=== PATIENT | female | born 1980 | race Caucasian/White ===

== ENCOUNTER → 2017-10-09 10:46 | Outpatient (CLI) | payer BC, SELFPAY ==
--- NOTE | 2017-10-09 10:47 | XR_ITS ---
XR tibia fibula RT 2V HISTORY: Follow-up ITS.REASON: fracture ORDERING PHYSICIAN: Gillian Santillan DPM PATIENT AGE: 37 years COMPARISON: 10/01/2017 FINDINGS: The tibia is intact. Again noted is the essentially nondisplaced spiral oblique fracture distal fibula just above the lateral malleolus. This is stable and unchanged in appearance from previous exam. There is less soft tissue swelling about the ankle on today's study. IMPRESSION: Stable spiral oblique fracture distal fibula
--- NOTE | 2017-10-09 10:47 | XR_ITS ---
XR ankle wt bearing RT min 3V HISTORY: Follow-up fracture ITS.REASON: fracture ORDERING PHYSICIAN: Gillian Santillan DPM PATIENT AGE: 37 years Comparison: 10/01/2017 FINDINGS: The spiral oblique fracture of the distal fibula is again noted. There is no significant callus formation or periosteal reaction noted. The medial malleolus is intact and the ankle mortise appears grossly normal. There is less soft tissue swelling than on the previous study. IMPRESSION: Able nondisplaced spiral oblique fracture distal fibula
--- NOTE | 2017-10-09 10:47 | XR_ITS ---
XR ankle wt bearing LT min 3V HISTORY: Comparison views ITS.REASON: Right ankle fracture ORDERING PHYSICIAN: Gillian Santillan DPM PATIENT AGE: 37 years Comparison: None FINDINGS: No fracture or dislocation. No lytic or blastic change. There is normal mineralization.. The joint spaces are well-preserved. No significant degenerative/arthritic changes. No erosive changes evident. IMPRESSION: Negative ankle, no acute finding
--- NOTE | 2017-10-09 13:47 | XR_ITS ---
XR chest 2V HISTORY: ITS.REASON: COUGH,SHORTNESS OF BREATH ORDERING PHYSICIAN: Gillian Santillan DPM PATIENT AGE: 37 years COMPARISON: None available FINDINGS: The cardiomediastinal silhouette and pulmonary vascularity are within normal limits. The lungs are clear without infiltrates, suspicious nodules, or pleural effusions. No acute bony abnormalities. IMPRESSION: Negative chest, no acute finding
[2017-10-09 14:31] LABS: Anion Gap 15.4 mEq/L (5-15); Blood Urea Nitrogen 16 mg/dL (7-18); Calcium 9.1 mg/dL (8.5-10.1); Carbon Dioxide 25 mmol/L (21.0-32.0); Chloride 107 mmol/L (98-107); Creatinine,Serum 0.73 mg/dL (0.55-1.02); Estimated Glomerular Filt Rate 90 ml/min (>60); GFR (African American) 109 ML/MIN (>60); Glucose 91 mg/dL (74-106); Potassium 4.4 mmoL/L (3.5-5.1); Sodium 143 mmol/L (136-145)
[2017-10-09 14:54] LABS: Basophils % 0.3 % (0.1-2.0); Eosinophils # 0.1 K/mm3 (0.0-0.4); Eosinophils % 0.9 % (0.1-12.0); Hematocrit 43.4 % (37.0-47.0); Lymphocytes % 34.2 K/mm3 (10-50); Mean Corpuscular HGB Conc 32.3 g/dL (31.8-35.4); Mean Corpuscular Hemoglobin 29.1 pg (27.0-31.2); Mean Platelet Volume 9.4 fl (7.4-10.4); Monocytes # 0.4 K/mm3 (0.1-1.0); Monocytes % 4.9 % (1.7-9.3); Neutrophils # 5.3 K/mm3 (1.8-7.8); Neutrophils % 59.8 % (37.0-80.0); Platelet Count 216 K/mm3 (142-424); Red Blood Count 4.82 M/mm3 (4.20-5.40); Red Cell Distribution Width 12.7 % (11.5-17.5); White Blood Count 8.8 K/mm3 (4.8-10.8)
== END ==
PROVIDERS: Visit Provider Podiatrist
DX: Z01.818 Encounter for other preprocedural examination (principal); S82.831A Other fracture of upper and lower end of right fibula, initial encounter for closed fracture
CPT/HCPCS: 36415; 71046; 73590; 73610; 80048; 85025; 93005

== ENCOUNTER → 2017-11-13 09:14 | Outpatient (CLI) | payer BC, SELFPAY ==
--- NOTE | 2017-11-13 09:14 | XR_ITS ---
XR ankle wt bearing RT min 3V Ordering Physician: Gillian Santillan DPM Patient Age: 37 years: Female HISTORY: ITS.REASON: POST-OP VIEWS ORIF fracture TECHNIQUE: 3 views right ankle COMPARISON :October 09, 2017 FINDINGS . There is been interval ORIF of distal fibular fracture. Metallic plate is been applied laterally to the distal fibular fracture by 6 screws. This providing fixation to the previous noted spiral fracture of lateral aspect of the distal fibula. Anatomical position of fracture elements. Good position. The ankle mortise intact. Lateral malleolus posterior malleolus intact. Dome of talus intact. IMPRESSION: ORIF distal fibular fracture Good position of fracture and fixation elements
== END ==
PROVIDERS: Visit Provider Podiatrist
DX: Z98.890 Other specified postprocedural states (principal)
CPT/HCPCS: 73610

== ENCOUNTER → 2017-11-30 07:43 | Outpatient (CLI) | payer BC, SELFPAY ==
--- NOTE | 2017-11-30 07:46 | XR_ITS ---
XR ankle wt bearing RT min 3V HISTORY: Follow-up surgery ITS.REASON: post-op views ORDERING PHYSICIAN: Gillian Santillan DPM PATIENT AGE: 37 years Comparison: 11/13/2017 FINDINGS: Lateral bone plate noted at the distal fibula stabilizing the nondisplaced distal fibular fracture. Fracture line is barely visible. IMPRESSION: No change status post ORIF distal fibular fracture with good alignment
== END ==
PROVIDERS: PCP Family Medicine; Visit Provider Podiatrist
DX: Z98.890 Other specified postprocedural states (principal)
CPT/HCPCS: 73610

== ENCOUNTER 2017-12-15 08:04 | Outpatient (RCR) | payer BC, SELFPAY ==
--- NOTE | 2017-12-15 08:48 | HMH.PTOPEV ---
PT Outpatient Evaluation Rehab PT Outpatient Evaluation Start: 12/15/17 08:36 Freq: Status: Active Protocol: Document 12/15/17 08:36 AXELGRAY (Rec: 12/15/17 08:47 AXELJEREMIEKATHERINE [id number]) Electronically Signed By Dustin Rene, PT 12/15/17 08:36 Outpatient Therapy Subjective History Subjective History Patient is a 37 year old female presenting to outpatient PT with reports of R ankle soreness/stiffness S/P R ankle ORIF for distal fibula fracture on 10/13/17. Initial injury occurred at home when patient slipped on some wet grass on 10/01/17. Patient has trasitioned from CAM walker to ankle brace. Pt ambulated into clinic with no brace wearing sandals today. No observable gait deviations . Chief Complaint Stiff Symptom Type Other Symptoms Relieved By Rest/Positioning Symptoms Aggravated By Physical Activity Prior Functional Limitations None Current Functional Limitations Standing Walking Stairs Symptom Description Intermittent Level of pain today (0-10) 0 Pain scale - at its best (0-10) 0 Pain scale - at its worst (0-10) 2 Ankle/Foot Eval Gait Observation General Gait Pattern Observation No Deviations/Normal Assistive Device Ambulation Assistive Device None Palpation Tenderness right ATF TTP positive ROM Ankle/Foot Dorsiflexion w/Knee Extended 1 Active Range Motion (degrees) Ankle/Foot Dorsiflexion w/Knee Extended 7 Passive Range (degrees) Ankle/Foot Plantar Flexion Active Range WNL of Motion (degrees) Ankle/Foot Eversion Active Range of WNL Motion (degrees) Ankle/Foot Inversion Active Range of WNL Motion (degrees) Ankle/Foot ROM Limitations Soft Tissue Tightness Accessory Movements Ankle Accessory Movements that Elicit Fibular Dorsal [place] Symptoms Fibular Ventral [place] MMT right Ankle Dorsiflexion Strength Grade 5 Normal Ankle Plantarflexion Strength Grade 5 Normal Foot Eversion Strength Grade 4 Good Foot Inversion Strength Grade 5 Normal Special Tests Ankle Anterior Drawer Test Negative Right Ankle Eversion Test Negative Right Talar Tilt Test Negative Right Ankle Posterior Drawer Test Negative Right Outpatient Therapy Assessment Impairments Problems/Impa
== END 2017-12-15 08:05 | disposition home or self-care (01) ==
LOC: PT 08:04
PROVIDERS: Family Provider Family Medicine; PCP Family Medicine; Visit Provider Podiatrist
DX: S82.831A Other fracture of upper and lower end of right fibula, initial encounter for closed fracture (principal)
CPT/HCPCS: 97163

== ENCOUNTER → 2018-07-31 14:27 | Outpatient (CLI) | payer BC, SELFPAY ==
--- NOTE | 2018-07-31 14:28 | US_ITS ---
US transvaginal HISTORY: Left-sided pelvic pain ITS.REASON: US T/v- LLQP ORDERING PHYSICIAN: Rah Thurman MD PATIENT AGE: 38 years Comparison: None FINDINGS: There has been a prior hysterectomy. The vaginal cuff has an unremarkable appearance. The left ovary measures 3.8 x 2.5 cm. Blood flow is present. The right ovary is 2.9 x 1.8 cm with blood flow noted. There are small follicles. No cul-de-sac fluid or adnexal mass. IMPRESSION: Prior hysterectomy, no acute finding
== END ==
PROVIDERS: PCP Physician Assistant; Visit Provider Nurse Practitioner Obstetrics & Gynecology
DX: R10.32 Left lower quadrant pain (principal)
CPT/HCPCS: 76830

== ENCOUNTER 2020-04-10 10:15 | Emergency (ER) | payer BC, SELFPAY ==
[2020-04-10 10:23] VITALS: BP 136/98; PULSE 72; RESP 18; TEMP 36.8; O2SAT 98; BMI 32.0
[2020-04-10 10:35] VITALS: BP 158/98; PULSE 76; RESP 14; TEMP 37.4; O2SAT 98; BMI 32.0
--- NOTE | 2020-04-10 10:38 | XR_ITS ---
PROCEDURE: XR WRIST LT MIN 3V CLINICAL INDICATION: injury Pain COMPARISON: No exams were available for comparison FINDINGS: No fracture or dislocation. No lytic or blastic change. There is normal mineralization. The joint spaces are well-preserved. No significant degenerative/arthritic changes. No erosive changes evident. Other findings:None. IMPRESSION: No acute findings. Dictated by: Isidro Martinez MD 04/10/2020 11:32 Isidro Martinez MD in [place] 04/10/2020 11:32
--- NOTE | 2020-04-10 11:01 | HMH.EDUTC ---
[facility] [place] Clinical Impression: Left wrist pain Disposition: Home, Self-Care Condition on Discharge: Good Instructions: DI for Wrist Pain Prescriptions: Naproxen [Naproxen 500mg tab] 500 mg PO BID 10 Days #20 tab Transmission Status: Pending to [id number] Referrals: Monica Gold [Primary Care Provider] - Miguel Delacruz MD [Staff Physician] - Time of Disposition: 11:13 Medical Decision Making - Darwin Inquiry Pt receiving controlled substance: No Vital Signs: 04/10/20 10:23 04/10/20 10:35 Temperature 98.3 F 99.4 F Temperature Source Oral Oral Pulse Rate [Left Radial] 72 76 Respiratory Rate 18 14 Blood Pressure [Right Arm] 136/98 H 158/98 H Blood Pressure Mean [Right Arm] 110 118 Blood Pressure Source [Right Arm] Automatic Cuff Automatic Cuff Blood Pressure Position [Right Arm] Sitting Sitting 02 Sat by Pulse Oximetry 98 98 Oxygen Delivery Method Room Air Room Air Orders (Tests/Meds): ORDERS Category Date Time Status XR wrist LT min 3V Stat Exams 04/10/20 10:38 Taken - Radiology Data #1 Image(s): Wrist Image Reviewed: Yes I reviewed the patient's radiology image Preliminary Findings: Normal/NAD [facility] [place] - General Stated complaint: Lt wrist pain Time Seen by Provider: 04/10/20 11:01 Mode of Arrival: Ambulatory Source of Information: Patient Limitations: No Limitations Description of Symptoms (Recalled from Triage Doc. by RN): c/o left wrist pain that started in January. No known injury, states that back in Jan she noticed a knot and swelling around wrist but that has gone away but the pain continues HEENT Symptoms (Recalled from RN notes): No Resp Symptoms (Recalled from RN notes): No Skin Symptoms (Recalled from RN notes): No MS Symptoms (Recalled from RN notes): Yes Functional Status (Recalled from RN notes): WNL - History of Present Illness Provider Complaint: Patient has been having left wrist pain for 2 months. STarted after hunting, but didn't actually do anything that she can recall to injure it. It sometimes swells, it always sore and inhibits some of her activities. SHe is right handed but uses left hand at work. Wearing a brace seemed to make it worse. Motrin and Tylenol don't make much difference. Onset (ago): month(s) (2) Location: left Radiation: non-radiation Relieving factors: none Exacerbating factors: none Associated symptoms: denies other symptoms Treatments prior to arrival: none - Related Data Home Medications Medication Instructions Recorded Confirmed Fluoxetine HCl [Prozac 20mg 20 mg PO DAILY 10/01/17 08/08/18 Capsule] Previous Rx's Medication Instructions Recorded Naproxen [Naproxen 500mg tab] 500 mg PO BID 10 Days #20 tab 04/10/20 Allergies Allergy/AdvReac Type Severity Reaction Status Date / Time No Known Allergies Allergy Verified 08/08/18 16:37 - Worker's Comp Is this a Worker's Comp case?: No [facility] History - Hepatitis A Screen Drug use history?: No High risk sexual behaviors?: No History of sexually transmitted infection?: No Currently employed?: No Childcare worker?: No Do you have indoor plumbing?: Yes Do you have electricity?: Yes Attestation statement:: This patient has been screened for Hepatitis A risk factors. I have reviewed the patient's past medical history: Yes Medical History: Reports:: Depression, Hyperlipidemia Denies:: Cancer, Diabetes Mellitus Type 1, Diabetes Mellitus Type 2, Internal Pacemaker, MRSA, Seizures Other Medical History: Denies: Blood Transfusion Reaction Other Surgeries: Yes: Appendectomy, , Hysterectomy-Total, Other (Right ankle ORIF). No: Pacemaker Amputation: No Fractures: Yes Comment: Broken Ankle, Sx 09/2017 - Social History Smoking Status: Never smoker Alcohol Intake: never Alcohol Intake Frequency:: other Substance Use Type: denies use Occupational Status: other Housing: house Household Members: spouse - Psychiatric
[2020-04-10 11:14] VITALS: BP 158/98; PULSE 76; RESP 14; TEMP 37.4; O2SAT 98
== END 2020-04-10 11:20 | disposition home or self-care (01) ==
LOC: ER 10:23 → UTC 10:24
PROVIDERS: Emergency Provider Physician Assistant; PCP Physician Assistant
DX: M25.532 Pain in left wrist (principal); E78.5 Hyperlipidemia, unspecified; F33.1 Major depressive disorder, recurrent, moderate; Z79.899 Other long term (current) drug therapy
CPT/HCPCS: 73110; 99202; G0463

== ENCOUNTER 2021-07-27 18:41 | Emergency (ER) | payer BC, SELFPAY ==
--- NOTE | 2021-07-27 19:35 | HMH.EDUTC ---
[facility] [place] Clinical Impression: Skin abscess Qualifiers: Site of cutaneous abscess: trunk Site of cutaneous abscess of trunk: back Qualified Code(s): L02.212 - Cutaneous abscess of back [any part, except buttock] Disposition: Home, Self-Care Condition on Discharge: Good Additional Instructions: Keep the affected area clean and dry. Follow up with your regular doctor. Take the antibiotics as directed and apply the topical antibiotics as directed. Apply warm wet compresses to the affected area three or four times per day. GO TO THE ER FOR ANY WORSENING SYMPTOMS Prescriptions: Sulfamethoxazole/Trimethoprim [Bactrim DS tablet] 1 each PO BID 10 Days #20 tab Transmission Status: Received by [id number] Mupirocin [Bactroban 2% Ointment 22gm tube] 1 applicatio TP TID 7 Days #1 gm Transmission Status: Received by [id number] cephALEXin [cephALEXin 500mg capsule] 500 mg PO Q6H 10 Days #40 cap Transmission Status: [facility] Referrals: Margaret Chambers APRN [Primary Care Provider] - Time of Disposition: 20:35 Medical Decision Making - Medical Records Medical records reviewed: No: I reviewed the patient's medical records. - Darwin Inquiry Pt receiving controlled substance: No Vital Signs: 07/27/21 19:41 07/27/21 20:37 Temperature 98.8 F 98.8 F Temperature Source Oral Pulse Rate 67 Pulse Rate [Left] 67 Respiratory Rate 18 18 Blood Pressure 130/80 Blood Pressure [Right Arm] 150/89 H Blood Pressure Mean [Right Arm] 109 02 Sat by Pulse Oximetry 97 Orders (Tests/Meds): ED MEDICATIONS Discontinued Medications Generic Name Dose Route Start Last Admin Trade Name Freq PRN Reason Stop Dose Admin Ceftriaxone Sodium 1 gm 07/27/21 20:07 07/27/21 20:18 Ceftriaxone 1gm Vial IM 07/27/21 20:08 1 gm ONCE ONE Administration Lidocaine HCl 0 ml 07/27/21 20:07 07/27/21 20:17 Lidocaine 1% 5ml Pf Vial IM 07/27/21 20:08 2 ml ONCE ONE Administration ORDERS Category Date Time Status Wound Culture and Gram Stain Stat Micro 07/27/21 20:05 Results [facility] [place] HPI - General Stated complaint: possible staff infection on back Time Seen by Provider: 07/27/21 19:35 - History of Present Illness Provider Complaint: She has had a boil on her back for the past 2 days. She states that it is getting more sore. She denies any fever or chills. - Related Data Home Medications Medication Instructions Recorded Confirmed Fluoxetine HCl [Prozac 20mg 40 mg PO DAILY 10/01/17 04/10/20 Capsule] Previous Rx's Medication Instructions Recorded Naproxen [Naproxen 500mg tab] 500 mg PO BID 10 Days #20 tab 04/10/20 Mupirocin [Bactroban 2% Ointment 1 applicatio TP TID 7 Days #1 gm 07/27/21 22gm tube] Sulfamethoxazole/Trimethoprim 1 each PO BID 10 Days #20 tab 07/27/21 [Bactrim DS tablet] cephALEXin [cephALEXin 500mg 500 mg PO Q6H 10 Days #40 cap 07/27/21 capsule] Allergies Allergy/AdvReac Type Severity Reaction Status Date / Time No Known Allergies Allergy Verified 07/27/21 19:43 [facility] History - Hepatitis A Screen Attestation statement:: This patient has been screened for Hepatitis A risk factors. I have reviewed the patient's past medical history: Yes Medical History: Reports:: Depression, Hyperlipidemia Denies:: Cancer, Diabetes Mellitus Type 1, Diabetes Mellitus Type 2, Internal Pacemaker, MRSA, Seizures Other Medical History: Denies: Blood Transfusion Reaction Other Surgeries: Yes: Appendectomy, , Hysterectomy-Total, Other (Right ankle ORIF). No: Pacemaker Amputation: No Fractures: Yes Comment: Broken Ankle, Sx 09/2017 - Social History Smoking Status: Never smoker Alcohol Intake: never Alcohol Intake Frequency:: other Substance Use Type: denies use Occupational Status: other Housing: house Household Members: spouse - Psychiatric History Pschychiatric History:: Reports:: Erin
[2021-07-27 19:41] VITALS: BP 150/89; PULSE 67; RESP 18; TEMP 37.1; O2SAT 97; BMI 33.8
[2021-07-27 20:37] VITALS: BP 130/80; PULSE 67; RESP 18; TEMP 37.1
== END 2021-07-27 20:43 | disposition home or self-care (01) ==
PROVIDERS: Emergency Provider Nurse Practitioner Family; PCP Nurse Practitioner Family
DX: L02.212 Cutaneous abscess of back [any part, except buttock and flank] (principal); E78.5 Hyperlipidemia, unspecified; F32.A Depression, unspecified; Z82.49 Family history of ischemic heart disease and other diseases of the circulatory system
CPT/HCPCS: 87070; 87077; 87186; 87205; 99213; G0463; J0696

== ENCOUNTER 2022-02-05 08:14 | Emergency (ER) | payer BC, SELFPAY ==
[2022-02-05 08:30] VITALS: BP 131/79; PULSE 83; RESP 18; TEMP 36.8; O2SAT 98; BMI 34.5
--- NOTE | 2022-02-05 08:44 | EXP.UTC ---
Discharge Plan Disposition Patient Disposition: Home, Self-Care Condition: Good Prescriptions Prescriptions: New oseltamivir [Tamiflu] 75 mg capsule 75 mg PO BID 5 Days Qty: 10 0RF benzonatate 100 mg capsule 100 mg PO TID PRN (Reason: cough) Qty: 30 0RF No Action fluoxetine 20 MG capsule 40 mg PO DAILY naproxen 500 MG tablet 500 mg PO BID 10 Days Qty: 20 0RF sulfamethoxazole-trimethoprim 1 EACH tablet 1 each PO BID 10 Days Qty: 20 0RF mupirocin 22 GM ointment 1 applicatio TP TID 7 Days Qty: 1 0RF cephalexin 500 MG capsule 500 mg PO Q6H 10 Days Qty: 40 0RF Referrals Follow up/Referrals: Margaret Chambers APRN [Primary Care Provider] - See instructions Activity Restrictions/Add. Instructions Additional Instructions/Restrictions: Start Tamiflu today if you are going to take it. Discussed risk and possible benefits. Lots of rest Increase Fluids water, Gatorade, powerade, pedialyte,if /toddler/child Alternate Tylenol and / or ibuprofen as discussed for fever, aches, chills Follow up IMMEDIATELY with your family doctor for new or worsening Symptoms OR no noticeable improvement over the next 48-72 hours, 911 for difficulty or breathing You or your child area contagious until no fever, aches, chills for 24 hours with medication for symptoms Help Prevent the spread of influenza: ?Wash your hands often. Use soap and water. Wash your hands after you use the bathroom, change a child's diapers, or sneeze. Wash your hands before you prepare or eat food. Use gel hand cleanser that has 60% alcohol, when soap and water are not available. Do not touch your eyes, nose, or mouth unless you have washed your hands first. Cover your mouth when you sneeze or cough. Cough into a tissue or the bend of your arm. If you use a tissue, throw it away immediately and wash your hands. Clean shared items with a germ-killing equipment or machinery cleaner. Clean table surfaces, doorknobs, and light switches. Do not share towels, silverware, and dishes with people who are sick. Wash bed sheets, towels, silverware, and dishes with soap and water. Wear a mask over your mouth and nose if you are sick. The face mask may help protect others from becoming infected with the flu. Wear the mask when in common areas of your home or if you seek care with a healthcare provider. Stay away from others if you are sick. Stay at home until 24 hours after your fever and symptoms are gone. Clinical Impressions Clinical Impression: Influenza A Stand Alone Forms Stand Alone Forms: Work/School Release Instructions Patient Instructions: Influenza, DI for Influenza -- Adult Discharge ED Provider: Sandra Lara [facility] [place] HPI General Stated complaint: runny nose, fever, body aches Time Seen by Provider: 02/05/22 08:44 History of Present Illness Provider Complaint: Patient state that she has been having fever, chills, body aches and over all not feeling well States that she feels like she may have the flu Related Data Home Medications Medication Instructions Recorded Confirmed fluoxetine 20 mg capsule 40 mg PO DAILY Depression 10/01/17 04/10/20 Previous Rx's Medication Instructions Recorded naproxen 500 mg tablet 500 mg PO BID 10 days #20 tabs 04/10/20 cephalexin 500 mg capsule 500 mg PO Q6H 10 days #40 caps 07/27/21 mupirocin 2 % topical ointment 1 applicatio TP TID 7 days ##1 07/27/21 sulfamethoxazole 800 1 each PO BID 10 days #20 tabs 07/27/21 mg-trimethoprim 160 mg tablet benzonatate 100 mg capsule 100 mg PO TID PRN cough #30 caps 02/05/22 oseltamivir 75 mg capsule (Tamiflu) 75 mg PO BID 5 days #10 caps 02/05/22 Allergies Allergy/AdvReac Type Severity Reaction Status Date / Time No Known Allergies Allergy Verified 07/27/21 19:43 [facility] Medical History (Update
[2022-02-05 08:49] LABS: UTC Influenza A Antigen Positive (Negative); UTC Influenza B Antigen Negative (Negative)
[2022-02-05 08:58] VITALS: BP 131/79; PULSE 83; RESP 18; TEMP 36.8; O2SAT 98
== END 2022-02-05 09:05 | disposition home or self-care (01) ==
PROVIDERS: Emergency Provider Nurse Practitioner; PCP Nurse Practitioner Family
DX: J10.1 Influenza due to other identified influenza virus with other respiratory manifestations (principal)
CPT/HCPCS: 87804; 99212; G0463

== ENCOUNTER 2023-09-20 03:48 | Emergency (ER) | payer BC, SELFPAY ==
[2023-09-20 03:50] VITALS: BP 157/100; PULSE 71; RESP 16; TEMP 36.9; O2SAT 98; BMI 34.5
--- NOTE | 2023-09-20 04:00 | CT_ITS ---
PROCEDURE INFORMATION: Exam: CT Abdomen And Pelvis With Contrast Exam date and time: 09/20/2023 5:00 AM Age: 43 years old Clinical indication: Abdominal pain; Additional info: Rlq pain TECHNIQUE: Imaging protocol: Computed tomography of the abdomen and pelvis with contrast. Radiation optimization: All CT scans at this facility use at least one of these dose optimization techniques: automated exposure control; mA and/or kV adjustment per patient size (includes targeted exams where dose is matched to clinical indication); or iterative reconstruction. Contrast material: ISOVUE; Contrast volume: 75 ml; Contrast route: IV; COMPARISON: TRANVAG US transvaginal 07/31/2018 2:38 PM FINDINGS: Liver: Normal. No mass. Gallbladder and biliary ducts: Normal. No calcified stones. No ductal dilation. Pancreas: Normal. No ductal dilation. Spleen: Normal. No splenomegaly. Adrenal glands: Normal. No mass. Kidneys and ureters: Normal. No hydronephrosis. Stomach and bowel: Unremarkable. No obstruction. No mucosal thickening. Appendix: No evidence of appendicitis. Intraperitoneal space: Unremarkable. No free air. No significant fluid collection. Vasculature: Unremarkable. No abdominal aortic aneurysm. Lymph nodes: Unremarkable. No enlarged lymph nodes. Urinary bladder: Unremarkable as visualized. Reproductive: Small amount of free fluid is seen in the pelvis adjacent to a mildly prominent right adnexa. The patient is status post hysterectomy. The left adnexa is unremarkable.. Bones/joints: Unremarkable. No acute fracture. Soft tissues: Unremarkable. IMPRESSION: Small amount of free fluid adjacent to a mildly edematous appearing right adnexa, possible hemorrhagic follicle or other process. Prior hysterectomy.
[2023-09-20 04:08] LABS: Microscopic, Urine URINE MICROSCOPIC (MICROSCOPIC)
[2023-09-20] MEDS: ONDANSETRON 4MG/2ML VIAL 4 MG IV (04:10)
[2023-09-20] MEDS: KETOROLAC 30MG/ML VIAL 30 MG IV (04:10)
[2023-09-20 04:11] LABS: Appearance,Urine CLEAR (Clear); Bilirubin,Urine Negative (Negative); Blood, Urine Negative (Negative); Color,Urine YELLOW (Yellow); Glucose,Urine (UA) Negative (Negative); Ketones,Urine Negative (Negative); Leukocyte Esterase,Urine Negative (Negative); Nitrate,Urine Negative (Negative); Protein,Urine Negative (Negative); Urobilinogen,Urine 0.2 EU/dl (0.2)
[2023-09-20] MEDS: MORPHINE 4MG/ML SYRINGE 4 MG IV (04:11)
[2023-09-20] MEDS: ACETAMINOPHEN 500MG TAB 1000 MG PO (04:11)
[2023-09-20 04:28] LABS: Bacteria,Urine Trace /lpf; WBC,Urine Occasional #/hpf (0-3)
[2023-09-20 04:30] VITALS: BP 122/77; PULSE 61; O2SAT 94
[2023-09-20 04:44] LABS: Basophils # 0.1 K/mm3 (0-0.2); Basophils % 0.8 % (0.1-2.0); Eosinophils # 0.1 K/mm3 (0.0-0.4); Eosinophils % 1.1 % (0.1-12.0); Hematocrit 43.1 % (37.0-47.0); Hemoglobin 13.9 g/dL (12.2-16.2); Lymphocytes # 2.7 K/mm3 (0.7-4.5); Lymphocytes % 26.7 % (10-50); Mean Corpuscular HGB Conc 32.4 g/dL (31.8-35.4); Mean Corpuscular Hemoglobin 30.2 pg (27.0-31.2); Mean Corpuscular Volume 93.5 fl (81-99); Mean Platelet Volume 9.4 fl (7.4-10.4); Monocytes # 0.4 K/mm3 (0.1-1.0); Monocytes % 4.2 % (1.7-9.3); Neutrophils # 6.8 K/mm3 (1.8-7.8); Neutrophils % 67.2 % (37.0-80.0); Platelet Count 260 K/mm3 (142-424); Red Blood Count 4.61 M/mm3 (4.20-5.40); Red Cell Distribution Width 13.9 % (11.5-17.5); White Blood Count 10.2 K/mm3 (4.8-10.8)
[2023-09-20 04:47] LABS: Chloride 104 mmol/L (98-107); Sodium 137 mmol/L (136-145)
[2023-09-20 04:48] LABS: Potassium 4.2 mmoL/L (3.5-5.1)
[2023-09-20 04:50] LABS: Alanine Aminotransferase 19 U/L (12-78); Albumin/Globulin Ratio 1.3 (1.1-1.8); Alkaline Phosphatase 73 U/L (38-126); Anion Gap 10.2 mEq/L (5-15); Aspartate Amino Transferase 24 U/L (14-36); Bilirubin,Total 0.2 mg/dl (0.2-1.3); Blood Urea Nitrogen 18 mg/dl (7-17); Calcium 9.4 mg/dl (8.4-10.2); Carbon Dioxide 27 mmol/L (22.0-30.0); Creatinine Clearance Estimated 145 mL/min (50-200); Estimated Glomerular Filt Rate 91 ml/min (>60); GFR (African American) 111 ML/MIN (>60); Globulin 3.1 g/dL (1.3-3.2); Glucose 130 mg/dl (74-100); HCG Qualitative, Serum Negative (Negative); Total Protein,Serum 7.1 g/dl (6.3-8.2)
[2023-09-20] MEDS: IOPAMIDOL-370 (76%);100ML BOTTLE 75 ML IV (05:05)
[2023-09-20] MEDS: SODIUM CHLORIDE 0.9% 10ML SYR (RAD ONLY) 10 ML IV (05:06)
[2023-09-20 05:30] VITALS: BP 112/70; PULSE 55; O2SAT 92
[2023-09-20 05:54] VITALS: BP 112/70; PULSE 58; RESP 16; TEMP 36.8; O2SAT 93
--- NOTE | 2023-09-20 05:54 | HMH.EDGENADL ---
Discharge Plan Disposition Patient Disposition: Home, Self-Care Prescriptions Prescriptions: No Action fluoxetine 20 MG capsule 40 mg PO DAILY naproxen 500 MG tablet 500 mg PO BID 10 Days Qty: 20 0RF Referrals Follow up/Referrals: Margaret Chambers APRN [Primary Care Provider] - See instructions Activity Restrictions/Add. Instructions Additional Instructions/Restrictions: Please follow-up with your primary care provider. Please return to the emergency department if you develop any new or worsening symptoms or become concerned for your health. Clinical Impressions Clinical Impression: Rupture of ovarian cyst Instructions Patient Instructions: DI for Acute Abdominal Pain Discharge ED Provider: Arturo Slade General Adult HPI General Chief complaint: Abdominal Pain Stated complaint: Lower back pain,abdominal pain Time Seen by Provider: 09/20/23 03:55 Mode of Arrival: Ambulatory Source of Information: Patient Limitations: No Limitations Description of Symptoms (Recalled from ER Triage Doc. by RN): Pt presents to ED for R sided abd pain and back pain. Pt states this started approx 2 hours ago. Pt is A&O*4 at this time and spouse is bedside. History of Present Illness HPI narrative: 43-year-old female with history of hysterectomy, appendectomy presents with pelvic pain. She reports that started about 2 hours prior to arrival. Reports it started in her right-sided lower abdomen and then moved up into her right back. She denies any history of kidney stones, denies any urinary urgency or frequency, denies any recent fever or illness. Related Data Home Medications Medication Instructions Recorded Confirmed fluoxetine 20 mg capsule 40 mg PO DAILY Depression 10/01/17 09/20/23 Previous Rx's Medication Instructions Recorded naproxen 500 mg tablet 500 mg PO BID 10 days #20 tabs 04/10/20 Allergies Allergy/AdvReac Type Severity Reaction Status Date / Time No Known Allergies Allergy Verified 07/27/21 19:43 [facility] Disclaimer: The information contained in this section may have been updated after the patient was seen, as this information can be updated by other users. Medical History (Updated 09/20/23 @ 06:02 by Natalia Estrada RN) Depression Anxiety Hyperlipidemia Surgical History (Updated 02/05/22 @ 08:53 by Elizabeth Littlejohn RN) History of ankle surgery History of hysterectomy History of section Social History (Updated 02/05/22 @ 08:53 by Elizabeth Littlejohn RN) Smoking Status: Unknown if ever smoked alcohol intake: never substance use type: denies use current occupational status: other Travel in the last 8 weeks: None household members: spouse housing: house current occupational exposures/hazards: No caffeine: Yes ROS Obtained: Yes All systems reviewed & no additional complaints except as documented Physical Exam General General appearance: alert and in no apparent distress Head Head exam: atraumatic and normocephalic Eye Eye exam: Present normal appearance, PERRL and EOMI ENT ENT exam: Present normal oropharynx and normal external ear exam Neck Neck exam: Present normal inspection and full ROM Chest Chest inspection: Present normal inspection and symmetric chest wall rise; Absent tenderness Respiratory Respiratory exam: Present normal lung sounds bilaterally; Absent respiratory distress Cardiovascular Cardiovascular exam: Present regular rate and normal rhythm Abdominal Exam Abdominal exam: Present soft and tenderness (Mild, right lower quadrant); Absent distention or guarding Extremities Exam Extremities exam: Present normal inspection; Absent edema or joint swelling Back Exam Back exam: Present normal inspection and CVA tenderness (R) (Mild) Neurological Exam Neurological exam: Present alert and oriented X3; Absent motor sensory deficit Psychiatric Psychiatric exam: Present normal affect and normal mood Skin Skin exam: Present warm, dry and normal color Lymphatic Lymphatic Findings: no adenopathy Medical Decision Making Medical Records Medical records reviewed: Yes I reviewed the patient's medical records. Darwin Inquiry Pt receiving controlled substance: No Darwin was queried for this patient: No Vital Signs: 09/20/23 03:50 09/20/23 04:30 09/20/23 05:30 Temperature 98.4 F Temperature Source Oral Pulse Rate 61 55 L Pulse Rate [Left] 71 Respiratory Rate 16 Blood Pressure 122/77 112/70 Blood Pressure [Right Arm] 157/100 H Blood Pressure Mean [Right Arm] 119 02 Sat by Pulse Oximetry 98 94 L 92 L Oxygen Delivery Method Room Air 09/20/23 05:54 Temperature 98.3 F Temperature Source Oral Pulse Rate 58 L Pulse Rate [Left] Respiratory Rate 16 Blood Pressure 112/70 Blood Pressure [Right Arm] Blood Pressure Mean [Right Arm] 02 Sat by Pulse Oximetry Oxygen Delivery Method Room Air Lab Data Lab results reviewed: Yes I reviewed the patient's lab results. Lab Results 09/20/23 04:00: WBC 10.2, RBC 4.61, Hgb 13.9, Hct 43.1, MCV 93.5, MCH 30.2, MCHC 32.4, RDW 13.9, Plt Count 260, MPV 9.4, Neut % (Auto) 67.2, Lymph % (Auto) 26.7, [place] % (Auto) 4.2, Eos % (Auto) 1.1, Baso % (Auto) 0.8, Neut # (Auto) 6.8, Lymph # (Auto) 2.7, [place] # (Auto) 0.4, Eos # (Auto) 0.1, Baso # (Auto) 0.1, Sodium 137, Potassium 4.2, Chloride 104, Carbon Dioxide 27, Anion Gap 10.2, BUN 18 H, Creatinine 0.70, Estimated Creat Clear 145, Estimated GFR 91, Est GFR ( Amer) 111, Glucose 130 H, Calcium 9.4, Total Bilirubin 0.2, AST 24, ALT 19, Alkaline Phosphatase 73, Total Protein 7.1, Albumin 4.0, Globulin 3.1, Albumin/Globulin Ratio 1.3, Serum HCG, Qual Negative, Urine Color Yellow, Urine Appearance Clear, Urine pH 7.0, Ur Specific [place] 1.020, Urine Protein Negative, Urine Glucose (UA) Negative, Urine Ketones Negative, Urine Blood Negative, Urine Nitrate Negative, Urine Bilirubin Negative, Urine Urobilinogen 0.2, Ur Leukocyte Esterase Negative, Urine RBC None, Urine WBC Occasional, Ur Squamous Epith Cells 5-10, Urine Bacteria Trace 09/20/23 04:00 09/20/23 04:00 Orders (Tests/Meds): ED MEDICATIONS Generic Name Dose Route Start Last Admin Trade Name Freq PRN Reason Stop Dose Admin Oxycodone HCl 5 mg 09/20/23 05:52 Oxycodone 5mg Immediate Release Tablet PO 09/20/23 05:53 ONCE ONE Sodium Chloride 10 ml 09/20/23 05:05 09/20/23 05:06 Sodium Chloride 0.9% 10ml Syr (Rad Only) IV 10/20/23 05:04 10 ml NEEDED PRN Administration Maintain IV Site Discontinued Medications Generic Name Dose Route Start Last Admin Trade Name Freq PRN Reason Stop Dose Admin Acetaminophen 1,000 mg 09/20/23 03:59 09/20/23 04:11 Acetaminophen 500mg Tab PO 09/20/23 04:00 1,000 mg ONCE ONE Administration Iopamidol 75 ml 09/20/23 05:05 09/20/23 05:05 Iopamidol-370 (76%);100ml Bottle IV 09/20/23 05:06 75 ml ONCE ONE Administration Ketorolac Tromethamine 30 mg 09/20/23 03:59 09/20/23 04:10 Ketorolac 30mg/Ml Vial IV 09/20/23 04:00 30 mg ONCE ONE Administration Morphine Sulfate 4 mg 09/20/23 03:59 09/20/23 04:11 Morphine 4mg/Ml Syringe IV 09/20/23 04:00 4 mg ONCE ONE Administration Ondansetron HCl 4 mg 09/20/23 03:59 09/20/23 04:10 Ondansetron 4mg/2ml Vial IV 09/20/23 04:00 4 mg ONCE ONE Administration ORDERS Category Date Time Status CT abdomen pelvis w con Stat Cat Scan 09/20/23 04:00 Completed CBC w/Auto Diff [Complete Blood Count Auto Diff] Stat Lab 09/20/23 04:00 Completed CMP [Comprehensive Metabolic Panel] Stat Lab 09/20/23 04:00 Completed HCG Qualitative, Serum Stat Lab 09/20/23 04:00 Completed UA [Urinalysis and Microscopic] Stat Lab 09/20/23 04:00 Completed Medical Decision Narrative: 43-year-old female with history of hysterectomy, appendectomy presents with right lower quadrant/pelvic pain and right flank pain.. History was obtained interactive discussion with patient, chart review. On arrival, patient is [afebrile, hemodynamically stable, satting appropriately, alert, oriented x4, GCS 15], moving all extremities spontaneously. Full physical exam performed and significant for right lower quadrant and right CVA tenderness Differential includes but is not limited to UTI, pyelonephritis, ureterolithiasis, ruptured ovarian cyst, ovarian torsion, constipation, colitis, hernia. Patient was given Tylenol, Toradol, morphine, Zofran for symptomatic management and correction of underlying abnormalities. Workup initiated including CBC CMP CT abdomen pelvis with IV contrast, UA. On re-evaluation, patient reports symptoms are significantly improved. Reports she now only has trace residual pain. Laboratory workup independently interpreted by me and significant for no significant electrolyte derangement, no leukocytosis, urine not consistent with infection. Imaging independently interpreted by me and significant for trace free fluid next to a edematous right adnexa most consistent with a ruptured ovarian follicle/cyst. See radiology read for full review of final results. Transvaginal ultrasound to assess for torsion was considered, but deemed unnecessary given patient's pain has significantly improved, she has free fluid that is more consistent with a ruptured ovarian follicle. Given patient history, exam and workup, patient's presentation most likely represents ruptured ovarian follicle/cyst. I had an interactive discussion with patient regarding her presentation. She reports that her pain continues to be improved. I discussed with her the possibility of ovarian torsion and recommended she return to the ER if her pain worsens as we cannot completely rule out torsion without a transvaginal ultrasound. She reported understanding. She was discharged in stable condition with return precautions. Procedures Risk/Benefits of Procedure(s) Were Explained: Yes Critical Care Critical Care Time Critical Care Time: No
[2023-09-20] MEDS: OXYCODONE 5MG IMMEDIATE RELEASE TABLET 5 MG PO (05:58)
== END 2023-09-20 06:02 | disposition home or self-care (01) ==
PROVIDERS: Emergency Provider Emergency Medicine; PCP Nurse Practitioner Family
DX: R10.2 Pelvic and perineal pain (principal); R10.31 Right lower quadrant pain; N83.291 Other ovarian cyst, right side
CPT/HCPCS: 74177; 80053; 81001; 84703; 85025; 96374; 96375; 99285; J1885; J2270; J2405; Q9967

== ENCOUNTER 2023-11-19 07:55 | Emergency (ER) | payer BC, SELFPAY ==
[2023-11-19 07:56] VITALS: BP 152/97; PULSE 65; RESP 16; TEMP 36.9; O2SAT 98; BMI 36.2
[2023-11-19 08:10] VITALS: BP 150/90; PULSE 72; RESP 18; TEMP 36.9; O2SAT 98
--- NOTE | 2023-11-19 08:10 | HMH.EDGENADL ---
Discharge Plan Disposition Patient Disposition: Home, Self-Care Prescriptions Prescriptions: New cephalexin 500 mg capsule 500 mg PO QID 10 Days Qty: 40 0RF No Action fluoxetine 20 MG capsule 40 mg PO DAILY naproxen 500 MG tablet 500 mg PO BID 10 Days Qty: 20 0RF Referrals Follow up/Referrals: Angelique Terry APRN [Primary Care Provider] - See instructions Evaristo Howard MD [Physician] - See instructions Activity Restrictions/Add. Instructions Additional Instructions/Restrictions: As discussed your symptoms are most consistent with a soft tissue infection of the auricle itself of the ear. Your external auditory canal otherwise did not appear severely inflamed. I would continue the drops that you are prescribed but take your oral antibiotics. Please follow-up with ear nose and throat if you are not improved within 48 to 72 hours. Clinical Impressions Clinical Impression: Cellulitis of auricle of right ear, Otitis externa Print Language Print Language: Tamazight Discharge ED Provider: Licha Santos General Adult HPI General Chief complaint: Ear Stated complaint: right ear pain Time Seen by Provider: 11/19/23 07:57 Mode of Arrival: Ambulatory Source of Information: Patient Limitations: No Limitations Description of Symptoms (Recalled from ER Triage Doc. by RN): Patient reports getting a daith piercing and it getting infected that she had to take it out. Now she has swelling and pain to the right ear. States she saw her PCP on Monday and she prescribed ear drops that are not helping. History of Present Illness HPI narrative: Patient is a 43-year-old female presents today with right ear discomfort. She states that she got a daith piercing several days ago and felt as though she initially had an allergic reaction to the metal. She had this on both sides but the right ear never improved and significantly worsened with spreading redness and swelling in the right ear itself. She went to her primary care doctor was prescribed neomycin polymyxin hydrocortisone drops which she has had since Monday without any significant improvement. She does states she has some itching associate with this but is primarily pain. Related Data Home Medications ?Medication ?Instructions ?Recorded ?Confirmed fluoxetine 20 mg capsule 40 mg PO DAILY Depression 10/01/17 09/20/23 Previous Rx's ?Medication ?Instructions ?Recorded naproxen 500 mg tablet 500 mg PO BID 10 days #20 tabs 04/10/20 cephalexin 500 mg capsule 500 mg PO QID 10 days #40 caps 11/19/23 Allergies Allergy/AdvReac Type Severity Reaction Status Date / Time No Known Allergies Allergy Verified 07/27/21 19:43 [facility] Disclaimer: The information contained in this section may have been updated after the patient was seen, as this information can be updated by other users. Medical History (Updated 11/19/23 @ 08:07 by Licha Santos MD) Depression Anxiety Hyperlipidemia Surgical History (Updated 02/05/22 @ 08:53 by Elizabeth Littlejohn RN) History of ankle surgery History of hysterectomy History of section Social History (Updated 02/05/22 @ 08:53 by Elizabeth Littlejohn RN) Smoking Status: Unknown if ever smoked alcohol intake: never substance use type: denies use current occupational status: other Travel in the last 8 weeks: None household members: spouse housing: house current occupational exposures/hazards: No caffeine: Yes ROS Obtained: Yes All systems reviewed & no additional complaints except as documented Physical Exam General General appearance: alert ENT ENT exam: Present other (Right auricle is inflamed and erythematous and mildly edematous the external auditory canal itself appears to not be severely inflamed tympanic membrane appears normal) Respiratory Respiratory exam: Present normal lung sounds bilaterally Cardiovascular Cardiovascular exam: Present regular rate Neurological Exam Demetris
== END 2023-11-19 08:18 | disposition home or self-care (01) ==
PROVIDERS: Emergency Provider Student in an Organized Health Care Education/Training Program; PCP Nurse Practitioner Family
DX: H60.11 Cellulitis of right external ear (principal); H60.91 Unspecified otitis externa, right ear
CPT/HCPCS: 99283; J8540

== ENCOUNTER 2024-01-19 08:19 | Emergency (ER) | payer BC, SELFPAY ==
[2024-01-19 08:20] VITALS: BP 157/72; PULSE 86; RESP 16; TEMP 36.8; O2SAT 98; BMI 36.0
--- NOTE | 2024-01-19 08:25 | HMH.EDGENADL ---
Discharge Plan Disposition Patient Disposition: Home, Self-Care Condition: Good Prescriptions Prescriptions: No Action fluoxetine 20 MG capsule 40 mg PO DAILY naproxen 500 MG tablet 500 mg PO BID 10 Days Qty: 20 0RF cephalexin 500 mg capsule 500 mg PO QID 10 Days Qty: 40 0RF Referrals Follow up/Referrals: Annemarie Terry PA [Primary Care Provider] - See instructions Activity Restrictions/Add. Instructions Additional Instructions/Restrictions: You can take Tylenol and ibuprofen as well as ice packs/heating pads at home to help with symptoms. If you develop any new or worsening symptoms, or if you become concerned for your health for any reason, return to the emergency department for evaluation. Clinical Impressions Clinical Impression: Soft tissue injury of left hand Print Language Print Language: Frisian Discharge ED Provider: Linwood Saunders General Adult HPI General Chief complaint: Extremity Injury, Upper Stated complaint: AO-Pain/swelling L hand Time Seen by Provider: 01/19/24 08:25 History of Present Illness HPI narrative: Araceli David is a 43y female with a history of depression, anxiety who presents to the emergency department for complaints of left hand pain and swelling. Patient states that just prior to arrival, she and her were going hunting. He had cocked the crossbow strings back, however it jammed. She reached her hand in to try to dislodge the strings, and when she did, it fired and the strings hit the back of her hand. Since then, she has had pain and swelling to the dorsum of her hand at the base of her second and third digits. She still able to move her fingers and has normal sensation. She denies any other trauma or injuries. She reports that history of previous carpal tunnel surgeries on both hands. Patient states that she took ibuprofen prior to arrival. Related Data Home Medications ?Medication ?Instructions ?Recorded ?Confirmed fluoxetine 20 mg capsule 40 mg PO DAILY Depression 10/01/17 09/20/23 Previous Rx's ?Medication ?Instructions ?Recorded naproxen 500 mg tablet 500 mg PO BID 10 days #20 tabs 04/10/20 cephalexin 500 mg capsule 500 mg PO QID 10 days #40 caps 11/19/23 Allergies Allergy/AdvReac Type Severity Reaction Status Date / Time No Known Allergies Allergy Verified 07/27/21 19:43 [facility] Disclaimer: The information contained in this section may have been updated after the patient was seen, as this information can be updated by other users. Medical History (Updated 01/19/24 @ 10:04 by Linwood Saunders MD) Depression Anxiety Hyperlipidemia Surgical History (Updated 02/05/22 @ 08:53 by Elizabeth Littlejohn RN) History of ankle surgery History of hysterectomy History of section Social History (Updated 02/05/22 @ 08:53 by Elizabeth Littlejohn RN) Smoking Status: Never smoker alcohol intake: never substance use type: denies use current occupational status: other Travel in the last 8 weeks: None household members: spouse housing: house current occupational exposures/hazards: No caffeine: Yes Other Medical History Have you received the Flu Vaccine for this season: Yes Have you received the Pneumonia Vaccine: No ROS Obtained: Yes Systems reviewed as appropriate & no additional complaints except as documented Physical Exam General General appearance: alert and in no apparent distress Head Head exam: atraumatic Eye Eye exam: Present normal appearance ENT ENT exam: Present normal external ear exam Neck Neck exam: Present full ROM Chest Chest inspection: Present symmetric chest wall rise Respiratory Respiratory exam: Absent respiratory distress Cardiovascular Cardiovascular exam: Present regular rate and normal rhythm Abdominal Exam Abdominal exam: Absent distention Extremities Exam Extremities exam: Present normal inspection Expanded Upper Extremity Exam Left: Comment: 2+ radial pulse. Swelling over the dorsal and palmar aspect of the left third and fourth digits. Full range of motion in all joint spaces in all fingers. Less than 2-second capillary refill. Tenderness to palpation over the base of the third and fourth fingers more prominent over the palmar aspect. No lacerations or abrasions. Back Exam Back exam: Present normal inspection Neurological Exam Neurological exam: Present alert and oriented X3 Psychiatric Psychiatric exam: Present normal affect Skin Skin exam: Present warm and dry Medical Decision Making Medical Records Screening: Per USPSTF and CDC recommendations, given the prevalence of disease in our region, it is our hospital?s policy to screen for HIV and viral Hepatitis for all patients aged 18 and over and those with ongoing risk factors. Darwin Inquiry Pt receiving controlled substance: No Vital Signs: 01/19/24 08:20 01/19/24 08:31 01/19/24 09:01 Temperature 98.2 F Temperature Source Oral Pulse Rate 60 61 Pulse Rate [Left Radial] 86 Respiratory Rate 16 Blood Pressure 122/74 121/72 Blood Pressure [Right Arm] 157/72 H Blood Pressure Mean 92 86 Blood Pressure Mean [Right Arm] 100 Blood Pressure Source [Right Arm] Automatic Cuff Blood Pressure Position [Right Arm] Sitting 02 Sat by Pulse Oximetry 98 98 99 Oxygen Delivery Method Room Air Room Air Room Air Orders (Tests/Meds): ORDERS Category Date Time Status Hand XR left minimum 3 views [XR hand LT min 3V] Stat Exams 01/19/24 08:28 Completed Medical Decision Narrative: Araceli David is a healthy 43-year-old female who presents to the emergency department for complaints of left hand pain after getting her fingers caught in a crossbow just prior to arrival. On arrival, patient is hypertensive with blood pressure 157/72 but otherwise hemodynamically stable and in no acute distress. Physical exam, as stated above, revealed an overall well-appearing female. She has swelling over the dorsum of her left hand but full range of motion in all fingers. She has tenderness palpation over the the base of her third and fourth digits along the palmar and dorsal aspects. Good capillary refill and good pulses. No other injuries are noted. Patient received ibuprofen prior to arrival and is reporting minimal pain at this time Differential diagnosis includes: Fracture, dislocation, soft tissue injury. Workup in the emergency room included: 3 view left hand x-ray X-rays were interpreted by me personally prior to official radiology reads and and demonstrates no fractures. Radiology report reports soft tissue swelling but no acute fractures. See radiology report for details. Given this, it is felt that the patient is appropriate discharge at this time and was instructed to take Tylenol and ibuprofen for her symptoms. Return precautions were given. All questions were answered. She demonstrated understanding and was in agreement this plan. She remained hemodynamically stable throughout her entire ED visit and was appropriate for discharge at this time. Critical Care Critical Care Time Critical Care Time: No
--- NOTE | 2024-01-19 08:28 | XR_ITS ---
PROCEDURE INFORMATION: Exam: XR Left Hand Exam date and time: 01/19/2024 8:28 AM Age: 43 years old Clinical indication: Pain; Finger(s); Left; Additional info: Pain/swelling, 2nd/3rd digits. Concern for FX TECHNIQUE: Imaging protocol: Radiologic exam of the left hand. Views: 3 or more views. COMPARISON: CR XR WRIST LT MIN 3V 04/10/2020 10:31 AM FINDINGS: Bones/joints: Bones are intact. No acute fracture. No dislocation. Soft tissues: Soft tissue swelling of the 2nd and 3rd digits. IMPRESSION: Soft tissue swelling of the 2nd and 3rd digits. No fracture.
[2024-01-19 08:31] VITALS: BP 122/74; PULSE 60; O2SAT 98
[2024-01-19 09:01] VITALS: BP 121/72; PULSE 61; O2SAT 99
[2024-01-19 10:13] VITALS: BP 121/72; PULSE 61; RESP 16; TEMP 36.7; O2SAT 99
== END 2024-01-19 10:14 | disposition home or self-care (01) ==
PROVIDERS: Emergency Provider Student in an Organized Health Care Education/Training Program; PCP Physician Assistant Surgical
DX: S69.92XA Unspecified injury of left wrist, hand and finger(s), initial encounter (principal); M79.642 Pain in left hand; W22.8XXA Striking against or struck by other objects, initial encounter; Y93.89 Activity, other specified; Y92.89 Other specified places as the place of occurrence of the external cause
CPT/HCPCS: 73130; 99283

== ENCOUNTER 2024-01-19 14:34 | Outpatient (CLI) | payer BC, SELFPAY ==
--- NOTE | 2024-01-19 14:37 | MM_ITS ---
PROCEDURE INFORMATION: Exam: MG Bilateral Screening 3D Mammography Exam date and time: 01/19/2024 2:22 PM Age: 43 years old Clinical indication: Baseline. No family history of breast cancer. TECHNIQUE: Imaging protocol: Bilateral Screening tomosynthesis and 2D mammography including computer-aided detection (CAD) when performed. COMPARISON: No relevant prior studies available. FINDINGS: MAMMOGRAPHY: Breast composition: There are scattered areas of fibroglandular density. Mass: Question oval 0.7 cm mass/circumscribed asymmetry in the outer right breast, posterior 3rd 6-8 cm from the nipple only seen on the CC image [id number] frame 27. Oval 0.8 cm mass with suggestion of hilar notch, in the left upper outer quadrant middle third, 4-5 cm from the nipple, CC image [id number] frame 29 and MLO image [id number] frame 43, probably an intramammary node. Architectural distortion: None. Calcifications: No suspicious calcifications. Asymmetric density: None. Skin thickening: None. Axillary adenopathy: None. IMPRESSION: Patient recalled for right diagnostic mammography with spot compression in CC, full field lateral and right sonography for further evaluation questionable mass. Patient will be recalled for left sonography for further evaluation of left breast mass. ASSESSMENT: BI-RADS Category 0: Incomplete: Need Additional Imaging Evaluation.
== END 2024-01-19 23:59 | disposition home or self-care (01) ==
LOC: RAD 14:35
PROVIDERS: PCP Nurse Practitioner Family; Visit Provider Nurse Practitioner Family
DX: Z12.31 Encounter for screening mammogram for malignant neoplasm of breast (principal)
CPT/HCPCS: 77063; 77067

== ENCOUNTER 2024-03-03 13:49 | Emergency (ER) | payer BC, SELFPAY ==
[2024-03-03 14:45] VITALS: BP 140/87; PULSE 67; RESP 18; TEMP 36.8; O2SAT 98; BMI 36.0
--- NOTE | 2024-03-03 15:00 | EXP.UTC ---
Discharge Plan Disposition Patient Disposition: Home, Self-Care Condition: Good Prescriptions Prescriptions: New azithromycin 250 mg tablet 250 mg PO DIRECTED Qty: 6 0RF Rx Instructions: Take two (2) tablets on day #1, then one (1) tablet day #2 thru #5 fluticasone propionate 50 mcg/actuation spray,suspension 1 spray intranasal DAILY Qty: 16 0RF No Action fluoxetine 20 MG capsule 40 mg PO DAILY Referrals Follow up/Referrals: Angelique Terry APRN [Primary Care Provider] - See instructions Activity Restrictions/Add. Instructions Additional Instructions/Restrictions: Start antibiotic patient to take as ordered for a full length of time even if you feel better. Sinus infections do not get better overnight. It may take 2-3 days to notice much improvement so be sure to use conservative measures as discussed for symptoms. Flonase 1 spray each nostril daily to help with nasal congestion, sinus and ear pressure/information Increase fluids Humidifier/vaporizer as needed Tylenol and ibuprofen as needed for fever or pain. If symptoms do not improve or get worse return or be seen in the ER Follow-up with primary care this week Clinical Impressions Clinical Impression: Acute maxillary sinusitis Instructions Patient Instructions: DI for Sinusitis Print Language Print Language: Lao Discharge ED Provider: Macario ([facility] [place] General Stated complaint: headache, congeseted Mode of Arrival: Ambulatory Source of Information: Patient Limitations: No Limitations Time Seen by Provider: 03/03/24 15:00 Description of Symptoms (Recalled from Triage Doc. by RN): PATIENT C/O HEADACHE AND CONGESTION X 3 WEEKS HEENT Symptoms (Recalled from RN notes): Yes Resp Symptoms (Recalled from RN notes): No Skin Symptoms (Recalled from RN notes): No MS Symptoms (Recalled from RN notes): No Functional Status (Recalled from RN notes): WNL History of Present Illness Provider Complaint: 43-year-old female presents for headache, sinus pressure, sinus congestion, green nasal drainage for 3 weeks. Related Data Home Medications ?Medication ?Instructions ?Recorded ?Confirmed fluoxetine 20 mg capsule 40 mg PO DAILY Depression 10/01/17 03/03/24 Previous Rx's ?Medication ?Instructions ?Recorded azithromycin 250 mg tablet 250 mg PO DIRECTED #6 tabs 03/03/24 fluticasone propionate 50 1 spray intranasal DAILY #16 grams 03/03/24 mcg/actuation nasal spray,suspension Allergies Allergy/AdvReac Type Severity Reaction Status Date / Time No Known Allergies Allergy Verified 07/27/21 19:43 Worker's Comp Is this a Worker's Comp case?: No [facility] Disclaimer: The information contained in this section may have been updated after the patient was seen, as this information can be updated by other users. Medical History , PULL OVER) Depression Anxiety Hyperlipidemia Surgical History , PULL OVER) History of ankle surgery History of hysterectomy History of section Social History , PULL OVER) Smoking Status: Never smoker alcohol intake: never substance use type: denies use current occupational status: other Travel in the last 8 weeks: None household members: spouse housing: house current occupational exposures/hazards: No caffeine: Yes ROS Obtained: Yes Systems reviewed as appropriate & no additional complaints except as documented Physical Exam General General appearance: alert and in no apparent distress Eye Eye exam: Present normal appearance ENT ENT exam: Present normal oropharynx, mucous membranes moist and TM's normal bilaterally Expanded ENT Exam Nose exam: Present sinus tenderness Respiratory Respiratory exam: Present normal lung sounds bilaterally Cardiovascular Cardiovascular exam: Present regular rate and normal rhythm Neurological Exam Neurological exam: Present alert and oriented X3 Skin Skin exam: Present warm and intact Medical Decision Making Medical Records Medical records reviewed: Yes I reviewed the patient's medical records. Screening: Per USPSTF and CDC recommendations, given the prevalence of disease in our region, it is our hospital?s policy to screen for HIV and viral Hepatitis for all patients aged 18 and over and those with ongoing risk factors. Darwin Inquiry Pt receiving controlled substance: No Darwin was queried for this patient: No Vital Signs: 03/03/24 14:45 Temperature 98.3 F Temperature Source Oral Pulse Rate [Left Brachial] 67 Respiratory Rate 18 Blood Pressure [Left Arm] 140/87 Blood Pressure Mean [Left Arm] 104 Blood Pressure Source [Left Arm] Automatic Cuff Blood Pressure Position [Left Arm] Sitting 02 Sat by Pulse Oximetry 98 Oxygen Delivery Method Room Air
[2024-03-03 15:14] VITALS: BP 140/87; PULSE 67; RESP 18; TEMP 36.8; O2SAT 98
== END 2024-03-03 15:16 | disposition home or self-care (01) ==
PROVIDERS: Emergency Provider Nurse Practitioner Family; PCP Nurse Practitioner Family
DX: J01.00 Acute maxillary sinusitis, unspecified (principal)
CPT/HCPCS: 99213; G0381

== ENCOUNTER 2025-02-04 13:43 | Outpatient (CLI) | payer BC, SELFPAY ==
--- OUTSIDE RECORDS SUMMARY | 2025-01-28 09:51 | XMS_ITS | Encounter Summary ---
Author Organization [employer] ([place], [place], [place], [place], [place]) Address [address] [place] [address] Care Team Providers Care Child Care Attendant School Name Role Phone Unavailable Primary Care Provider Unavailabl e Reason for Referral * MRI (Routine) - New Request Specialty Diagnoses / Procedures Referred By Penny valente Referred To Contact Radiology Diagnoses Other migraine, intractable, without status migrainosus Procedures MR Brain Without & With IV Contrast Anastasia Phelps MD [address] [place] [address], [address] [place] [address] Phone: tel: fax: Referral ID Status Reason Start Date Expiration Date V isits Requested Visits Authorized [id number] New Request 01/27/2025 01/27/2026 1 1 Reason for Visit * Auth/Cert (Routine) Specialty Diagnoses / Procedures Referred By Penny valente Referred To Contact Procedures MR BRAIN WITH & WITHOUT IV CONTRAST [facility] [address] [place] [address] Phone: tel: fax: [facility] [address] [place] [address] Phone: tel: fax: Referral ID Status Reason Start Date Expiration Date Visits Re quested Visits Authorized [id number] 1 1 Encounter Details Date Type Department Care Team (Late st Contact Info) Description 01/28/2025 9:51 AM EST - 01/28/2025 11:59 PM EST Hospital Encounter [facility] [address] [place] [address] Anastasia Phelps MD [address] [facility], [address] [place], [place] [id number] Other migraine, intractable, without status migrainosus Discharge Disposition: Home or Self Care Social History Tobacco Use Types Packs/Day Years Used Date Smoking Tobacco: Never Assessed Comments Unknown Sex and Gender Information Value Date Recorded Sex Assigned at Female 09/21/2021 8:49 PM CDT Legal Sex Female 8:49 PM CDT Gender Identity Female 09/21/2021 8:49 PM CDT Sexual Orientation Not on file documented as of this encounter Plan of Treatment Not on file documented as of this encounter Procedures Procedure Name Priority Date/Time Associated Diagnosis Comments MR BRAIN WITH & WITHOUT IV CONTRAST Routine 01/28/2025 10:53 AM EST Other migraine, intractable, without status migrainosus documented in this encounter Results * MR Brain Without & With IV Contrast (01/28/2025 10:53 AM EST) Anatomical Region Laterality Modality Head, Brain Magnetic Resonan ce (MRI) 01/28/2025 11:2 9 AM EST Impressions 01/28/2025 11:32 AM EST No acute intracranial abnormality. Images reviewed, interpreted, and dictated by Donavan Nielsen MD Narrative 01/28/2025 11:32 AM EST MRI HEAD WITHOUT AND WITH CONTRAST HISTORY: Headaches and dizziness COMPARISON: None. FINDINGS: Multiplanar MR imaging of the head was performed without and with contrast. Scattered small foci of increased T2 signal are seen in the cerebral white matter consistent with mild chronic ischemic/gliotic changes. There is no evidence of intracranial hemorrhage or mass. The ventricles are within normal limits with respect to size. There is no evidence of shift of the midline structures. No abnormal extra-axial fluid collection is seen. The posterior fossa and brainstem have an unremarkable appearance. No abnormal contrast enhancement is identified. On the diffusion weighted images, no abnormal restricted diffusion is seen. Normal major vessel vascular flow voids are identified. Procedure Note Donavan Nielsen MD - 01/28/2025 MRI HEAD WITHOUT AND WITH CONTRAST HISTORY: Headaches and dizziness COMPARISON: None. FINDINGS: Multiplanar MR imaging of the head was performed without and with contrast. Scattered small foci of increased T2 signal are seen in the cerebral white matter consistent with mild chronic ischemic/gliotic changes. There is no evidence of intracranial hemorrhage or mass. The ventricles are within normal limits with respect to size. There is no evidence of shift of the midline structures. No abnormal extra-axial fluid collection is seen. The posterior fossa and brainstem have an unremarkable appearance. No abnormal contrast enhancement is identified. On the diffusion weighted images, no abnormal restricted diffusion is seen. Normal major vessel vascular flow voids are identified. IMPRESSION: No acute intracranial abnormality. Images reviewed, interpreted, and dictated by Donavan Nielsen MD us Anastasia Phelps MD IMG MRI ORDERABLES Final Resu lt documented in this encounter Visit Diagnoses Diagnosis Other migraine, intractable, without status migrainosus documented in this encounter Administered Medications Inactive Administered Medications - up to 3 most recent administrations Medication Order MAR Action Action Date Dose Rate Site gadopiclenol (VUEWAY) 0.5 mmol/mL injection 7.5 mL 7.5 mL IMG once as needed, intravenous, contrast, Starting on Mon01/28/25 at 1051, Intra-op Given 01/28/2025 10:55 AM EST 7.5 mLs documented in this encounter
--- NOTE | 2025-02-04 13:47 | MM_ITS ---
PROCEDURE INFORMATION: Exam: MG Bilateral Screening 3D Mammography Exam date and time: 02/04/2025 1:52 PM Age: 44 years old Clinical indication: Screening. No family history of breast cancer. TECHNIQUE: Imaging protocol: Bilateral Screening tomosynthesis and 2D mammography including computer-aided detection (CAD) when performed. COMPARISON: MG MM DIG SCREENING MAMM BI W/CAD 01/19/2024 2:22 PM FINDINGS: MAMMOGRAPHY: Breast composition: There are scattered areas of fibroglandular density. Mass: None. Architectural distortion: None. Calcifications: No suspicious calcifications. Asymmetric density: None. Skin thickening: None. Axillary adenopathy: None. IMPRESSION: No mammographic evidence of malignancy. Annual screening is recommended unless otherwise clinically indicated. ASSESSMENT: BI-RADS Category 1: Negative.
--- OUTSIDE RECORDS SUMMARY | 2025-02-04 13:49 | XMS_ITS | Data Portability ---
Author Organization [employer] [place] [facility] [place] Address [address] [address] Assessment Encounter Date Assessment Date Assessment LastModified by Organization Details LastModified Time 08/07/2024 08/07/2024 Continue dietary changes. Congratulated her weight loss and improvement of A1C. Continue buspar PRN. Increased to TID dosing if needed. Follow up as planned in December for annual exam, sooner if needed Not available 08/09/2024 11:20:18 08/28/2024 08/28/2024 Negative for UTI on urinalysis today. Increase oral fluids. Labs per plan below. Further plan with results. Follow up as planned sooner if needed. Not available 08/28/2024 16:56:54 12/30/2024 12/30/2024 Patient will call her PEGGER DOBBY LOOMS for follow up on ongoing recurrent vaginitis. Nuswab and treatment per plan below. Hygiene measures reinforced for prevention. Corticosteroid as prescribed. We also discussed preventative stretching. She is going to continue with her chiropractor for now, but we may consider physical therapy in the future. We also discussed breaks and stretching when she is using her phone or looking at screens for periods of time. Follow up as planned in 2 weeks for wellness visit, sooner if needed. Not available 12/30/2024 10:05:57 01/13/2025 01/13/2025 Wellness discussed including recommended screenings, vaccines and lifestyle changes including routine exercise 30 minutes 5 times per week and a healthy diet. We also specifically discussed weightbearing exercise and calcium/vit D supplement daily over the counter to maintain bone density. Mammo - due this month. Pap - sees PEGGER DOBBY LOOMS, advised she no longer needs paps (no cervix). Scheduled this week and she will verify again as well. Colon CA screening - agreeable for colonoscopy. We discussed risks and benefits of screenings and she chooses colonoscopy, will refer for when she turns 45 in a few months. Return for fasting labs per plan below. Medications refilled per plan below. Keep appt with PEGGER DOBBY LOOMS this week. Keep appt with ENT today (she will message me an update as she had another episode of vertigo/dizzines s last week). If not ENT cause, may consider referral to PT for neck/vertigo. Folloow up in 6 months for recheck, sooner if needed Not available 01/13/2025 09:30:01 Plan of Treatment Reminders Order Date Submit Date Provider Last Modified By Organization Details Last Modified Time Details Appointments None recorded. Lab lipid panel, serum 2024 025 [email or web address] [facility] ([place] [address] [place] [address], [address], 11:59:48 CMP, serum or plasma 2024 025 [email or web address] [facility] ([place] [address] [place] [address], [id number], 5 11:59:48 CBC w/ auto diff 2024 025 [email or web address] [facility] ([place] [address] [place] [address], [address], 5 11:59:48 vaginal pathogens panel, ANGIE+probe, vaginal fluid 2024 025 JOSHUA [facility] ([place] [address] [place] [address], [address], 5 05:07:01 urinalysis, dipstick 2024 025 [facility], [address] [place] [address], [place], [address], 16:49:18 culture, urine 2024 025 JOSHUA [facility]), [facility], [place], [address], 5 12:08:17 vaginal pathogens panel, ANGIE+probe, vaginal fluid 2024 025 JOSHUA [facility], [place], [address], 12:08:17 HbA1c (hemoglobin A1c), blood [address], [address] [place] [address], [place], [address], 11:20:20 Referral None recorded. Procedures colonoscopy screening (PROC) - Schedule after March 11 (turns 45 then) 2024 025 [facility] Christophe Yepez MD, [address] [place] [address] [address], [place], [address], 12:03:56 Surgeries None recorded. Imaging MAMMO, screening, digital, bilateral - First available [address], [address] [place] [address] [address], [place], [address], 11:44:10 Medication Orders metronidazo le 500 mg tablet 2024 025 [facility], [facility] [employer] [place], [address], 05:01:07 buspirone 10 mg tablet [address] [facility], [facility] [employer] [place], [address], 09:27:02 fluoxetine 40 mg capsule [address] [facility], [address] [place] [address], [address], 09:27:02 tizanidine 4 mg tablet 2024 [facility], [address] [place] [address], [address], 10:21:38 fluconazole 150 mg tablet 2024 [facility], [address] [place] [address], [address], 09:35:55 Medrol ([place]) 4 mg tablets in a dose pack 2024 [facility], [address] [place] [address], [address], 09:35:54 meclizine 25 mg chewable tablet 2024 [facility], [address] [place] [address], [address], 09:47:47 fluticasone propionate 50 mcg/actuati on nasal spray,suspe nsion 2024 [facility], [address] [place] [address], [address], 18:14:58 buspirone 10 mg tablet 2024 [facility], [address] [place] [address], [address], 13:26:22 Patient TargetsNo targets recorded. Patient Instructions Encounter Date Encounter Id Patient Instructions Last Modified By Organization Details Last Modified Time 12/20/2024 [id number] dizziness: care instructions [email or web address] Not available 12/20/2024 17:47:56 Reason for Referral None Reported. Results Created Date Observation Date Name Description Value Unit Range Abnormal Flag Note LastModifiedBy Organization Detail LastModifiedTime 08/08/1908/07/2024 HbA1c (hemo globi n A1c), blood HbA1c 5.5 Not Available [address], [place], [address], 08/07/2024 13:29:33 08/29/19 25 08/30/2024 NUSWA B VAGIN ITIS PLUS (VG+) atopobium vaginae Modera te - 1 score Not Available [facility] ([facility]) [address] [place], [address], 08/31/2024 12:08:17 08/29/19 25 08/30/2024 NUSWA B VAGIN ITIS PLUS (VG+) bvab 2 Low - 0 score Not Available [facility] ([facility]) [address] [place], [address], 08/31/2024 12:08:17 08/29/19 25 08/30/2024 NUSWA B VAGIN ITIS PLUS (VG+) megasphaera 1 Low - 0 score Calcu late total score by tejinder moseley the 3 indiv idual bacte rial vagin osis (BV) marke r score s toget her. Total score is inter prete d as follo ws: Total score 0-1: Indic ates the absen ce of BV. Total score 2: Indet ermin ate for BV. Addit ional clini josee data shoul d be evalu ated to estab laura a diagn osis. Total score 3-6: Indic ates the prese nce of BV. Not Available [facility] ([facility]) [address] [facility], [place], [address], 08/31/2024 12:08:17 08/29/19 25 08/31/2024 NUSWA B VAGIN ITIS PLUS (VG+) katt albicans, ANGIE Negati ve negati ve Not Available [facility] ([facility]) [address] [place], [address], 08/31/2024 12:08:17 08/29/19 25 08/31/2024 NUSWA B VAGIN ITIS PLUS (VG+) katt glabrata, ANGIE Positi ve negati ve abnormal Publi shed data demon strat e that up to 65% of Leslye da glabr aditi ident ified in cases of vagin al leslye diasi s have decre ased susce ptibi lity to fluco nazol e. Not Available [facility] ([facility]) [address] [facility], [place], [address], 08/31/2024 12:08:17 08/29/19 25 08/31/2024 NUA B VAGIN ITIS PLUS (VG+) trich vag by ANGIE Negati ve negati ve Not Available [facility] ([facility]) [address] [place], [address], 08/31/2024 12:08:17 08/29/19 25 08/31/2024 NUA B VAGIN ITIS PLUS (VG+) chlamydia trachomatis, ANGIE Negati ve negati ve Not Available [facility] ([facility]) [address] [place], [address], 08/31/2024 12:08:17 08/29/19 25 08/31/2024 NUA B VAGIN ITIS PLUS (VG+) neisseria gonorrhoeae, ANGIE Negati ve negati ve Not Available [facility] ([facility]) [address] [place], [address], 08/31/2024 12:08:17 08/29/19 25 08/31/2024 URINE CULTU RE, JHONNYI NE urine culture, routine Final report Not Available [facility] ([facility]) [address] [place], [address], 08/31/2024 12:08:17 08/29/19 25 08/31/2024 URINE CULTU RE, ROUTI NE result 1 COMMEN T Cultu re shows less than 10,00 0 colon y formi ng units of bacte angel per bennett liter of urine . This colon y count is not gener ally consi dered to be clini winsome katharine ruffin Not Available [facility] ([facility]) [address] [facility], [place], [address], 08/31/2024 12:08:17 08/29/19 25 08/28/2024 urina lysis , dipst ick Leukocytes Negati ve Not Available [address], [address], 08/28/2024 16:45:26 08/29/19 25 08/28/2024 urina lysis , dipst ick Nitrite negati ve Not Available [address], [address], 08/28/2024 16:45:26 08/29/19 25 08/28/2024 urina lysis , dipst ick Urobilinogen .2 Not Available [address], [address], 08/28/2024 16:45:26 08/29/19 25 08/28/2024 urina lysis , dipst ick Protein Negati ve Not Available [address], [address], 08/28/2024 16:45:26 08/29/19 25 08/28/2024 urina lysis , dipst ick pH 6.0 Not Available [address], [address], 08/28/2024 16:45:26 08/29/19 25 08/28/2024 urina lysis , dipst ick Blood Negati ve Not Available [address], [address], 08/28/2024 16:45:26 08/29/19 25 08/28/2024 urina lysis , dipst ick Specific Alpha 1.010 Not Available [address], [address], 08/28/2024 16:45:26 08/29/19 25 08/28/2024 urina lysis , dipst ick Ketone Negati ve Not Available [address], [address], 08/28/2024 16:45:26 08/29/19 25 08/28/2024 urina lysis , dipst ick Bilirubin Negati ve Not Available [address], [address], 08/28/2024 16:45:26 08/29/19 25 08/28/2024 urina lysis , dipst ick Glucose Negati ve Not Available [address], [address], 08/28/2024 16:45:26 08/29/19 25 08/28/2024 urina lysis , dipst ick Appearance Clear Not Available [address], [address], 08/28/2024 16:45:26 08/29/19 25 08/28/2024 urina lysis , dipst ick Color Pale Yellow Not Available [address], [address], 08/28/2024 16:45:26 12/31/19 25 12/31/2024 NUSWA B VAGIN ITIS PLUS (VG+) atopobium vaginae Low - 0 score Not Available [facility] ([facility]) [address], [place], [address], 01/01/2025 05:07:01 12/31/1912/31/2024 NUA B VAGIN ITIS PLUS (VG+) bvab 2 Low - 0 score Not Available [facility] ([facility]) [address] [facility], [place], [address], 01/01/2025 05:07:01 12/31/19 25 12/31/2024 NUA B VAGIN ITIS PLUS (VG+) megasphaera 1 Low - 0 score Calcu late total score by tejinder g the 3 indiv idual bacte rial vagin osis (BV) marke r score s toget her. Total score is inter prete d as follo ws: Total score 0-1: Indic ates the absen ce of BV. Total score 2: Indet ermin ate for BV. Addit ional clini josee data shoul d be evalu ated to estab laura a diagn osis. Total score 3-6: Indic ates the prese nce of BV. Not Available [facility] ([facility]) [address] [facility], [place], [address], 01/01/2025 05:07:01 12/31/1901/01/2025 NUA B VAGIN ITIS PLUS (VG+) katt albicans, ANGIE Negati ve negati ve Not Available [facility] ([facility]) [address] [facility], [place], [address], 01/01/2025 05:07:01 12/31/1901/01/2025 NUA B VAGIN ITIS PLUS (VG+) katt glabrata, ANGIE Positi ve negati ve abnormal Publi shed data demon strat e that up to 65% of Leslye da glabr aditi ident ified in cases of vagin al leslye diasi s have decre ased susce ptibi lity to fluco nazol e. Not Available [facility] ([facility]) [address] [facility], [place], [address], 01/01/2025 05:07:01 12/31/19 25 01/01/2025 NUA B VAGIN ITIS PLUS (VG+) trich vag by ANGIE Negati ve negati ve Not Available [facility] ([facility]) [address] [facility], [place], [address], 01/01/2025 05:07:01 12/31/1901/01/2025 NUA B VAGIN ITIS PLUS (VG+) chlamydia trachomatis, ANGIE Negati ve negati ve Not Available [facility] ([facility]) [address] [facility], [place], [address], 01/01/2025 05:07:01 12/31/1901/01/2025 NUA B VAGIN ITIS PLUS (VG+) neisseria gonorrhoeae, ANGIE Negati ve negati ve Not Available [facility] ([facility]) [address] [facility], [place], [address], 01/01/2025 05:07:01 Result Notes None recorded. Problems Name Problem SNOMED Code Status Onset Date Resolution Date Notes Provider Name and Address Organization Details Recorded Time Depressiv e disorder 92666018 Active 2023 MELBA MC [address], [address], [employer] 4 08:25:31 Prediabet es 425916396 Active 2023 Angelique Terry NP [address] [place] [address], [address], [employer] 5 13:29:23 Insomnia 829731684 Active 2023 MELBA MC [address], [address], [employer] 4 08:25:33 Mixed hyperlipi demia 880096322 Active 2023 MELBA MC [address], [address], [employer] 4 08:25:35 Otitis externa of right ear 778632614294 9101 Completed 202308/07/2024 Angelique Terry NP [address] [place] [address], [address], [place] [employer] 13:04:21 Fatigue 66033319 Active 2023 Angelique Terry NP [address] [place] [address], [address], [employer] 5 08:33:12 Snoring 60603965 Active 2023 Angelique Terry NP [address] [place] [address], [address], [employer] 08:33:16 Abnormal cortisol 082312873 Completed 202308/07/2024 Angelique Terry NP [address] [place] [address], [address], [employer] 13:04:19 Acute sinusitis 42670719 Completed 202304/12/2024 Angelique Terry NP [address] [place] [address], [address], [employer] 5 08:33:10 Fever 935218714 Completed 202304/12/2024 Angelique Terry NP [address] [place] [address], [address], [employer] 08:33:14 Acute urinary tract infection 615938925 Completed 202408/07/2024 Angelique Terry NP [address] [place] [address], [address], [employer] 13:04:24 Urinary symptoms 139919208 Completed 202408/07/2024 Angelique Terry NP [address] [place] [address], [address], [employer] 13:04:26 Vaginitis 51010737 Completed 202408/07/2024 Angelique Terry NP [address] [place] [address], [address], [employer] 13:04:28 Pruritus of vagina 33864067 Completed 202412/30/2024 Angelique Terry NP [address] [place] [address], [address], [employer] 09:40:43 Dysuria 09709530 Completed 202412/30/2024 Angelique Terry NP [address] [place] [address], [address], [employer] 09:40:47 Bacterial vaginosis 621207872 Completed 202412/30/2024 Angelique Terry NP [address] [place] [address], [address], [employer] 09:40:58 Candidal vulvovagi nitis 26364746 Completed 202412/30/2024 Angelique Terry NP [address] [place] [address], [address], [employer] 09:40:56 Candidias is 14586489 Completed 202412/30/2024 Angelique Terry NP [address] [place] [address], [address], [employer] 09:40:51 Dizziness 123335046 Active 2024 MAKEDA JIANG NP [address] [place] [address], [address], [employer] 17:42:25 Ear sensation s - finding 310500325 Active 2024 MAKEDA JIANG NP [address] [place] [address], [address], [employer] 10:15:32 Neck pain 31421068 Active 2024 Angelique Terry, [employer] [address] [place] [address], [address], [employer] 09:52:56 Dysfuncti on of bilateral eustachia n tubes 017490001287 9100 Active 2024 Angelique Terry, [employer] [address] [place] [address], [address], [employer] 09:53:02 History of hysterect katharina 224569024 Active 2024 Angelique Terry, [employer] [address] [place] [address], [address], [employer] 09:20:15 Migraine 86511207 Active 2024 Angelique Terry, [employer] [address] [place] [address], [address], [employer] 16:10:17 Problem Notes None recorded. Procedures Surgical History Date Name Laterality Status Provider Name and Address Organization Details Recorded Time 01/19/20 24 Most Recent Mammogram completed Kaela Santos [employer] 03/16/2024 08:12:56 03/09/20 15 Other completed Angelique Terry, ANGIE [address] [place] [address], [address], [employer] 01/13/2025 09:20:49 04/05/19 11 Other completed Angelique Terry NP [address] [place] [address], [address], [employer] 01/13/2025 09:20:55 Appendectomy completed [employer] 04/06/2023 10:23:50 Partial Hysterectomy completed [employer] 04/06/2023 10:23:50 section completed DEBRA HAYS [employer] 04/06/2023 10:29:23 Carpal Tunnel Surgery completed [employer] 04/06/2023 10:29:33 repair of ankle completed [facility] [place] - Osiel Lev[place], [facility]. 04/06/2023 10:29:42 Imaging Results None recorded. Procedure Notes None recorded. Medical Equipment None Reported. Allergies No known drug allergies Medications Name Sig Start Date Stop Date Status Note LastModified by Organization Details LastModified Time fluoxetine 40 mg capsule TAKE 1 CAPSULE BY MOUTH ONCE DAILY active Not Available Not Available No t Available amoxicillin 500 mg capsule TAKE 1 CAPSULE BY MOUTH TWICE DAILY FOR 7 DAYS active Not Available Not Available No t Available atorvastati n 20 mg tablet Take 1 tablet every day by oral route. 01/04 completed Not Available Not Available Not Available trazodone 50 mg tablet Take 1 tablet every day by oral route at bedtime. 11/19 completed Not Available Not Available Not Available atorvastati n 10 mg tablet TAKE 1 TABLET BY MOUTH ONCE DAILY 04/06 completed Not Available Not Available Not Available azithromyci n 250 mg tablet 04/18 completed Not Available Not Available Not Available tizanidine 4 mg tablet TAKE 1 TABLET BY MOUTH every DAY AT bedtime FOR neck pain/musc le SPASMS active Not Available Not Available No t Available fluconazole 150 mg tablet TAKE 1 TABLET BY MOUTH FOR ONE DOSE. MAY REPEAT DOSE AFTER 72 hours if symptoms persist 01/13 completed Not Available Not Available Not Available hydrocodone 5 mg-acetamin ophen 325 mg tablet TAKE 1 TABLET BY MOUTH EVERY 6 HOURS NEEDED FOR 4 DAYS 08/07 completed Not Available Not Available Not Available phenazopyri dine 200 mg tablet TAKE 1 TABLET BY MOUTH THREE TIMES DAILY NEEDED FOR URINARY SYMPTOMS 08/07 completed Not Available Not Available Not Available sumatriptan 50 mg tablet Take 1 tablet by mouth as needed for migraine for 1 dose. If symptoms persist, may repeat dose after 2 hours. Do not take more than 2 tablets in 24 hours. This medicatio n may cause drowsines s. active Not Available Not Available No t Available metronidazo le 500 mg tablet Take 1 tablet twice a day by oral route for 7 days. 01/27 completed Not Available Not Available Not Available sulfamethox azole 800 mg-trimetho prim 160 mg tablet TAKE 1 TABLET BY MOUTH EVERY 12 HOURS 08/07 completed Not Available Not Available Not Available terconazole 80 mg vaginal suppository INSERT 1 SUPPOSITO RY VAGINALLY ONCE DAILY FOR 3 DAYS 12/20 completed Not Available Not Available Not Available terbinafine HCl 250 mg tablet TAKE 1 TABLET BY MOUTH ONCE DAILY FOR 7 DAYS DIRECTED EVERY OTHER MONTH 04/06 completed Not Available Not Available Not Available meclizine 25 mg tablet TAKE 1 TABLET BY MOUTH 3 TIMES DAILY active Not Available Not Available No t Available cephalexin 500 mg capsule TAKE 1 CAPSULE BY MOUTH TWICE DAILY FOR 7 DAYS 12/20 completed Not Available Not Available Not Available buspirone 10 mg tablet Take 1 tablet by mouth twice daily 2024 active Not Available Not Available Not Avai lable ibuprofen 400 mg tablet 04/06 completed Not Available Not Available Not Available buspirone 7.5 mg tablet TAKE 1 TABLET BY MOUTH TWICE DAILY 08/07 completed Not Available Not Available Not Available methylpredn isolone 4 mg tablets in a dose pack Take by mouth as directed 01/13 completed Not Available Not Available Not Available fluticasone propionate 50 mcg/actuati on nasal spray,suspe nsion [place] 1 spray every day by intranasa l route. active Not Available Not Available No t Available amoxicillin 875 mg-potassiu m clavulanate 125 mg tablet TAKE ONE TABLET BY MOUTH EVERY TWELVE HOURS 04/18 completed Not Available Not Available Not Available neomycin-po lymyxin-hyd rocort 3.5 mg-10,000 unit/mL-1 % ear drops,susp INSTILL 4 DROPS INTO AFFECTED EAR(S) BY OTIC ROUTE 4 TIMES PER DAY 01/04 completed Not Available Not Available Not Available meclizine 25 mg chewable tablet Chew 1 tablet 3 times a day by oral route. 12/30 completed Not Available Not Available Not Available chlorhexidi ne gluconate 0.12 % mouthwash RINSE MOUTH WITH 15ML(1 CAPFUL) FOR 30 SECONDS AM AND PM AND SPIT, USE TWICE DAILY AFTER BRUSHING AND FLOSSING .DO NOT SWALLOW 08/07 completed Not Available Not Available Not Available Stahist AD 25 mg-60 mg tablet TAKE 1 TABLET BY MOUTH THREE TIMES DAILY 12/20 completed Not Available Not Available Not Available Wegovy 0.25 mg/0.5 mL subcutaneou s pen injector Inject 0.5 mL every week by subcutane ous route. 04/18 completed Not Available Not Available Not Available boric acid 600 mg vaginal suppository Insert 1 supposito ry every day by vaginal route for 21 days. 12/20 completed Not Available Not Available Not Available Vitals Date Recorded Body height Body mass index (BMI) Body weight Heart rate Oxygen saturation Oxygen saturation in Arterial blood by Pulse oximetry Systolic And Diastolic Provider Name and Address Organization Details Last Updated DateTime 5 160.02 cm 32.4 kg/m2 87796.1 g 56 /min 97 % 97 % 136/87 mm[Hg] Kaela [employer] 5 13:02:13 Date Recorded Body height Body mass index (BMI) Body weight Heart rate Oxygen saturation Oxygen saturation in Arterial blood by Pulse oximetry Systolic And Diastolic Provider Name and Address Organization Details Last Updated DateTime 5 160.02 cm 32.7 kg/m2 05702.1 g 76 /min 96 % 96 % 130/84 mm[Hg] Kaela [employer]. 5 16:33:57 Date Recorded Body height Body mass index (BMI) Body weight Oxygen saturation Oxygen saturation in Arterial blood by Pulse oximetry Heart rate Body temperature Systolic And Diastolic Provider Name and Address Organization Details Last Updated DateTime 5 160.02 cm 32.1 kg/m2 44494.3 2 g 96 % 96 % 59 /min 98 [degF] 122/85 mm[Hg] Flory Neal [employer] 5 17:05:23 Date Recorded Body height Body mass index (BMI) Body weight Heart rate Oxygen saturation Oxygen saturation in Arterial blood by Pulse oximetry Systolic And Diastolic Provider Name and Address Organization Details Last Updated DateTime 5 160.02 cm 32.6 kg/m2 39228.7 5 g 52 /min 96 % 96 % 139/85 mm[Hg] Kaela [employer]. 5 09:36:21 Date Recorded Body height Body mass index (BMI) Body weight Heart rate Oxygen saturation Oxygen saturation in Arterial blood by Pulse oximetry Systolic And Diastolic Provider Name and Address Organization Details Last Updated DateTime 5 160.02 cm 33 kg/m2 02610.6 3 g 55 /min 95 % 95 % 136/85 mm[Hg] Kaela Santos [employer] 5 08:58:09 Social History Question Answer Notes LastModified by Organizat ion Details LastModified Time Tobacco Smoking Status Never Smoker [employer]. 04/06/2023 10:23:49 Do You Have An Advance Directive? No [email or web address] Information not available 04/06/2023 Is Your Home Air Conditioned? Yes [email or web address] Information not available 04/06/2023 If You Are , What Was Your Level Of Alcohol Consumption Prior To ? None [email or web address] Information not available 12/30/2024 How Many Years Have You Consumed Alcohol? 20 [email or web address] Information not available 12/30/2024 Do You Wear A Helmet When Biking? No [email or web address] Information not available 04/06/2023 Are You Blind Or Do You Have Difficulty Seeing? No [email or web address] Information not available 04/06/2023 What Is Your Level Of Caffeine Consumption? Occasional [email or web address] Information not available 04/06/2023 Are You A Caregiver? No [email or web address] Information not available 12/30/2024 In The 14 Days Before Symptom Onset, Have You Had Close Contact With A Laboratory-confi rmed COVID-19 While That Case Was Ill? No [email or web address] Information not available 11/20/2023 In The 14 Days Before Symptom Onset, Have You Had Close Contact With A Person Who Is Under Investigation For COVID-19 While That Person Was Ill? No [email or web address] Information not available 11/20/2023 Have You Been To An Area Known To Be High Risk For COVID-19? No [email or web address] Information not available 07/06/2023 Are You Deaf Or Do You Have Serious Difficulty Hearing? No [email or web address] Information not available 04/06/2023 What Type Of Diet Are You Following? REGULAR [email or web address] Information not available 04/06/2023 What Is The Highest Grade Or Level Of School You Have Completed Or The Highest Degree You Have Received? [id number] [email or web address] Information not available 12/30/2024 Who Is Your Employer? [employer] [email or web address] Information no t available 04/06/2023 Have There Been Any Changes To Your Family Or Social Situation? No [email or web address] Information not available 04/06/2023 Are There Any Guns Present In Your Home? No [email or web address] Information not available 04/06/2023 Which Of Your Hands Is Dominant? Right [email or web address] Information not available 04/06/2023 Do You Engage In Moderate/heavy Exercise (e.g. Brisk Walk, Jogging, Strength Training, Etc)? No Information not available 12/30/2024 What Is Your Home Situation? Other [email or web address] Information not available 04/06/2023 How Many Times In The Past Year Have You Used An Illegal Drug Or Used A Prescription Medication For Nonmedical Reasons? 0 [email or web address] Information not available 12/30/2024 [facility] [email or web address] Information not available 12/30/2024 Do You Have A Medical Power Of Alignment Mechanic? No [email or web address] Information not available 04/06/2023 What Was The Date Of Your Most Recent Tobacco Screening? 01/13/2025 [email or web address] Information not available 01/13/2025 Are There Any Occupational Health Risks Where You Work? No [email or web address] Information not available 04/06/2023 Have You Ever Been Counseled For Unhealthy Alcohol Use? No [email or web address] Information not available 11/17/2023 Do You Have Any Pets? Yes [email or web address] Information not available 04/06/2023 Do You Use Protection During Sex? No [email or web address] Information not available 04/06/2023 What Is Your Relationship Status? Single [email or web address] Information not available 04/06/2023 Have You Repeated Any Grades? Yes [email or web address] Information not available 04/06/2023 Do You Wear A Seatbelt When Driving Or As A Passenger? Yes [email or web address] Information not available 12/30/2024 Do You Use Your Seat Belt Or Car Seat Routinely? Yes [email or web address] Information not available 04/06/2023 Are You Sexually Active? Yes [email or web address] Information not available 04/06/2023 Do You Have Any Siblings? 1 Brother Information not available 04/06/2023 Do You Have Smoke And Carbon Monoxide Detectors In Your Home? Yes [email or web address] Information not available 04/06/2023 Are You Passively Exposed To Smoke? No Information not available 04/06/2023 Are There Any Smokers In Your House? No [email or web address] Information not available 04/06/2023 Do You Participate In Social Media? Yes [email or web address] Information not available 11/20/2023 What Types Of Sporting Activities Do You Participate In? Hunting, Fishing, Kayaking [email or web address] Information not available 04/06/2023 Do You Use Sunscreen Routinely? No [email or web address] Information not available 04/06/2023 Has Tobacco Cessation Counseling Been Provided? No Information not available 11/17/2023 Have You Recently Traveled Abroad? No [email or web address] Information not available 07/06/2023 Do You Have Difficulty Walking Or Climbing Stairs? No [email or web address] Information not available 04/06/2023 Are You Currently In School? No [email or web address] Information not available 11/20/2023 What Contraceptive Method Was Reported At Start Of This Visit? None [email or web address] Information not available 12/30/2024 Do You Feel Safe In Your Home? Yes Information not available 12/30/2024 Do You Have Any Dietary Restrictions? No [email or web address] Information not available 11/20/2023 How Many Days In The Past Year Have You Consumed 4 Or More Drinks? 0 [email or web address] Information not available 12/30/2024 What Is Your Reason For Having No Contraceptive Method At Start Of This Visit? Other [email or web address] Information not available 12/30/2024 Sex: Female Functional Status Question Answer Note LastModified by Organizat ion Details LastModified Time How many times per week do you consume alcohol? Less than 1 time per week [email or web address] Information not available 12/30/2024 Do you use any illicit or recreational drugs? No [email or web address] Information not available 04/06/2023 Do you feel safe in your relationship? Yes [email or web address] Information not available 12/30/2024 Do you or have you ever used any other forms of tobacco or nicotine? No [email or web address] Information not available 04/06/2023 What is your level of alcohol consumption? Occasional [email or web address] Information not available 04/06/2023 Are you currently employed? Yes [email or web address] Information not available 04/06/2023 Do you have transportation difficulties? No [email or web address] Information not available 11/20/2023 Are you able to walk independently without assistance or assistive devices? YESWOREST [email or web address] Information not available 04/06/2023 Do you have difficulty doing errands alone? No [email or web address] Information not available 04/06/2023 Are you able to care for yourself independently? Yes [email or web address] Information not available 04/06/2023 Do you have difficulty dressing, bathing, grooming, or toileting? No [email or web address] Information not available 04/06/2023 What is your exercise level? Occasional Information not available 03/16/2024 Mental Status Question Answer Note LastModified by Organizat ion Details LastModified Time Do you feel stressed (tense, restless, nervous, or anxious, or unable to sleep at night)? [id number] [email or web address] Information not available 01/05/2024 Do you have difficulty concentrating, remembering or making decisions? Yes [email or web address] Information no t available 04/06/2023 Are you or have you been involved with bullying? No [email or web address] Information not available 04/06/2023 Family History Relationship Description Onset Age of this Age Resolved Age Notes LastModified by Organization Details LastModified Time Mother Anxiety disorder [email or web address] Not available 01/2024 10:23:48 Mother Hypertensive disorder [email or web address] Not available 01/2024 10:23:49 Brother Hypertensive disorder [email or web address] Not available 01/2024 10:23:49 Father Hypertensive disorder [email or web address] Not available 01/2024 10:23:49 Medical History Condition Response Coronary Artery Disease N Other N Gout N Kidney Stones N Blood Diseases N Hyperthyroidism N Blood Transfusion N Breast Cancer N Emergency room visit since last appointm ent. N COPD N Depression N Dermatologic Disorders N Hypothyroidism N Lung Disease N Developmental or Behavioral Disorders N Defects or Inherited Disease N Breast Problem N Difficulty Swallowing N Anesthesia Complications N History of STI N Meniere's disease N Anxiety Disorder N Muscle, Joint, or Bone Problems N Autoimmune disease N Obesity Y Vision or Eye Problems N Arthritis N Polyps N Infertility N Mental Disorder N Congenital Anomalies N Acid Reflux (GERD) N Cancer N Stroke N Neurologic/Epilepsy N Endometriosis N Bladder or Kidney Problems N High Cholesterol N Liver Disease N Organ Transplant N Psychiatric/Mental Health Condition N Fibromyalgia N Headaches N Dialysis N Schizophrenia N Kidney Disease N Allergies/Hayfever N Heart Problems N Ear or Hearing Problems N Hospitalizations N Learning Disorder N Artificial Joints N Thyroid Problems N GI Problems N Acne N ADD/ADHD N Eating Disorder N Anemia N Constipation N Mental Illness N Ovarian Cancer N Diabetes N Bedwetting N Hepatitis/Liver Disease N Tuberculosis N Eczema N Diverticulitis N Abuse/Domestic Violence N Asthma N Trauma/Violence N Substance Abuse N Reflux/GERD N Depression/ depression N Hepatitis N Heart Disease N Pulmonary Embolism N Tourette Syndrome N Chronic Ear Infections N Pre-Eclampsia N Hypertension N Chicken Pox N Autism Spectrum Disorder (ASD) N Osteoporosis N Thrombophilias N Gynecological History Statement/Question Response Date of LMP Sexually Active? Y Menses Monthly N STIs/STDs N HPV Vaccine Y Date of Last Pap Smear Current Control Method Hysterectom y Age at Menarche 12 Most Recent Mammogram 01/19/2024 Age at First Child 30 Obstetrics History GPAL:G 0 P 0 0 0 0 Immunizations Vaccine Type Date Status Note Provider Cheo e and Address Organization Details Recorded Time COVID-19, mRNA, LNP-S, PF, 30 mcg/0.3 mL dose 01/18/2021 completed Not Available [facility] 08:46:53 Past Encounters Encounter ID Performer Location Encounter Start Date Encounter Closed Date Diagnosis/Indication Diagnosis SNOMED-CT Code Diagnosis ICD10 Code Diagnosis IMO Codes Diagnosis Note [id number] MELBA [place] [address] 04/06/2023 10:20:39 04/06/2023 10:52:22 Depressive disorder 83081240 F32.A Prediabetes 425921002 R7 3.03 Insomnia 360978675 G47.0 0 Counseling 468120961 Z71 .9 [id number] MELBA [place] [id number] 07/06/2023 07:54:10 07/06/2023 08:40:24 Depressive disorder 24901423 F32.A [id number] Angelique Terry, ANGIE [place] [address] 11/17/2023 08:19:43 11/17/2023 09:45:57 Otitis externa of right ear 5855396624 567896 H60.91 Depressive disorder 3548 9007 F32.A Body mass index 30+ - obesity 033852593 Z68.34 [id number] Angelique [place] [address] 11/20/2023 16:31:57 11/20/2023 17:35:58 Otitis externa of right ear 5878525682 302160 H60.91 [id number] Angelique Terry NP [place] [address] 0 01/05/2024 07:58:45 01/05/2024 09:06:29 Adult health examination 339890755 Z00.00 Depressive disorder 3548 9007 F32.A Mixed hyperlipidemia 267 800486 E78.2 Prediabetes 683737280 R7 3.03 Hepatitis C screening 41 5474185 Z11.59 HIV screening 208795808 Z11.4 Fatigue 09901562 R53.83 Snoring 96694528 R06.83 Screening mammography 24 561285 Z12.31 Body mass index 30+ - obesity 723039070 Z68.34 [id number] [place] [address] 03/16/2024 08:33:18 03/19/2024 11:13:14 Fever 699520102 R50.9 Acute sinusitis 23413436 J01.90 [id number] [place] [address] 04/18/2024 16:40:18 04/30/2024 06:44:43 Urinary symptoms 479042298 R39.9 Acute urin gabriele tract infection 107548305 N39.0 [id number] Angelique Terry NP [place] [address] 08/07/2024 12:46:51 08/07/2024 13:28:46 Depressive disorder 65703157 F32.A Prediabetes 468026683 R7 3.03 243641 [id number] Angelique Terry, COMMUNICATION AND OUTREACH MANAGER [place] [address] 08/28/2024 16:17:11 08/28/2024 16:59:45 Pruritus of vagina 55340066 N89.8 180640 Dysuria 19924477 R30.0 40551 [id number] MAKEDA JIANG, [place] [address] 12/20/2024 16:37:43 12/23/2024 14:46:17 Dizziness 733351201 R42 08931 Ear sensat ions - finding 840487101 H93.8X3 94099591 Discussed use of fluticason e. [id number] Angelique Terry, [place] [address] 12/30/2024 09:20:46 12/30/2024 10:00:12 Neck pain 15239285 M54.2 35717 Dysfunctio n of bilateral eustachian tubes 3814588807 722968 H69.93 54502022 Vaginitis 87203788 N76.0 [id number] Angelique Terry, [place] [address] 01/13/2025 08:45:55 01/13/2025 09:58:43 Active or passive immunization 247251795 Z23 Tdap recommende d, declined today, but will think about it next time.will get flu shot at work Bacterial vaginosis 4197 47618 N76.0 B96.89 Depressive disorder 3548 9007 F32.A Screening mammography 24 448824 Z12.31 [id number] Screening colonoscopy 44 0902084 Z12.11 187042 General ex amination of patient 688526339 Z00.00 51379572 Hyperlipid emia screening 017491225 Z13.220 872063 Health Concerns Section Related Observation LastModified by Organization Detai ls LastModified Time None Recorded Concern Status LastModified by Organization Details LastModified Time None Recorded Advance Directives Directive N: Payers Insurance Date Sequence Insurance Name Policy Number Policy Forbes Covered Member ID Forbes Member ID Guarantor Name 01/10/2025 1 [place] [employer] 111 Araceli David [id number] Araceli David Notes Date Note Type Note Provider Name and Address Organization Details Recorded Time 08/07/2024 text/html Patient presents for follow up on mood. She called a week ago asking for her buspar to be increased d/t increased irritability. States she is feeling better than she was last month. She had some major road rage last month. Increasing the buspar has helped a lot with her road rage.She goes to court in August for a ticket she got. Angelique Terry NP [address] [place], [address], [employer]. 08/09/2024 11:20:44 08/28/2024 text/html Patient presents for evaluation of vaginal itching, discharge and urinary frequency. She has had symptoms off and on for several weeks now, but in the last few days it has been worse. She also has some vaginal odor. She tried monistat OTC but it did not help. Some low back pain. No fever or chills.Only sexual partner is her . Angelique Terry NP [address] [place], [address], [employer]. 08/28/2024 16:57:41 12/20/2024 text/html ROS as noted in the HPI Patient presents today for symptoms of motion sickness. correlates the symptoms with heavy computer and screen use mostly, with symptoms occurring from 10am-2pm mostly, which is when her high computer use is with work. Also has noted symptoms presents when she is scrolling on her phone. Had eye exam yesterday, no changes to prescription, eye exam normal per patient. States that she has some feeling of head and ear fullness, not pain, but feeling of fullness. Denies nausea, unsteady gait, and falls. Reports symptoms seem to resolve when not viewing a screen. Denies other concerns. MAKEDA JIANG, ANGIE [address] [place], [address], [employer]. 12/23/2024 10:17:35 12/30/2024 text/html Patient presents for evaluation of dizziness. States ongoing for about a month now. States she was slow at work and started watching movies on the computer and that is when the dizziness started. States every day at the same time she gets a dizzy spell. She checked with her eye physician and they told her it was not her eyes. She tried the meclizine, but it did not help with symptoms. States when she is sitting at the computer or scrolling on her phone is when it happens. States it feels like motion sickness when it occurs. She states she was treated with flonase and meclizine but it has not helped. She does have neck pain. She went to the chiropractor last . States they tried to treat vertigo but it did not help.Ears do not hurt or feel full. Tried flonase for about three days, but stopped using it because she forgot. She does have an ENT appt on 01/13/2025.She also has ongoing vaginitis that has been recurrent for several months now. She has seen PEGGER DOBBY LOOMS and been treated for BV and yeast vaginitis, but symptoms continue to recur. She tried OTC probiotic as well. Symptoms returned last week. Angelique Terry NP [address] [place], [address], [employer]. 12/30/2024 10:06:17 01/13/2025 text/html Annual WellnessReported by PatientSocial/Behavior al HistoryFor diet and nutrition, patient reportshealthy diet. For fracture risk, patient reportsno recent explained fracture. For physical activity, patient reportsdiscussed exercise habits. For additional lifestyle factors, patient reportsno tobacco use(rare alcohol use).Mental Status:For depression risk, patient reportsnever feels sad, empty, or tearful,no loss of interest in activities,no sleep disturbances or insomnia,no thoughts of suicide, andno history of depression.Functional AbilityFor vision, patient reportsno vision problems(sees eye physician). Patient presents for annual exam.Dizziness x 3 days last week. She has had headaches as well. She states her neck has been hurting. Angelique Terry NP [address] [place] [address], [address], [facility] [place], [facility]. 01/13/2025 09:32:17 OBGyn Episode No OBEpisode recorded.
--- OUTSIDE RECORDS SUMMARY | 2025-02-04 13:49 | XMS_ITS | Referral Summary ---
Author Organization [employer] ([place], [place], [place], [place], [place]) Address [address] [place] [address] Care Team Providers Care Charge Account Identification Clerk Name Role Phone Unavailable Primary Care Provider Unavailabl e Encounters Date Type Department Care Team Description 01/28/2025 Travel 01/28/2025 9:51 AM EST - 01/28/2025 11:59 PM EST Hospital Encounter [facility] [address] [place] [address] Anastasia Phelps MD Other migraine, intractable, without status migrainosus Discharge Disposition: Home or Self Care from Last 3 Months Allergies No known active allergies Social History Tobacco Use Types Packs/Day Years Used Date Smoking Tobacco: Never Assessed Comments Unknown Sex and Gender Information Value Date Recorded Sex Assigned at Female 09/21/2021 8:49 PM CDT Legal Sex Female 8:49 PM CDT Gender Identity Female 09/21/2021 8:49 PM CDT Sexual Orientation Not on file Plan of Treatment Not on file Procedures Procedure Name Priority Date/Time Associated Diagnosis Comments MR BRAIN WITH & WITHOUT IV CONTRAST Routine 01/28/2025 10:53 AM EST Other migraine, intractable, without status migrainosus from Last 3 Months Results * MR Brain Without & With [...] interpreted, and dictated by Donavan Nielsen MD Anastasia Phelps MD IMG MRI ORDERABLES Final Resu lt from Last 3 Months Insurance BLUE CROSS/BLUE SHIELD Member Subscriber Plan / Payer (Ef fective 2016-Present) Name:Araceli David Relation to Subscriber:Self Name:Araceli David Payer ID:Not on file Group ID:[id number] Type:Not on file Address: [facility] [id number] [place] [id number]
--- OUTSIDE RECORDS SUMMARY | 2025-02-04 13:49 | XMS_ITS | Continuity of Care Document ---
Author Organization [employer] [facility] [employer] [email or web address] Address [address] [place] [id number] Assessment Encounter Date Assessment Date Assessment LastModified by Organization Details LastModified Time 01/13/2025 01/13/2025 Wellness discussed including recommended screenings, vaccines and lifestyle changes including routine exercise 30 minutes 5 times per week and a healthy diet. We also specifically discussed weightbearing exercise and calcium/vit D supplement daily over the counter to maintain bone density. Mammo - due this month. Pap - sees LUMBER MARKER, advised she no longer needs paps (no cervix). Scheduled this week and she will verify again as well. Colon CA screening - agreeable for colonoscopy. We discussed risks and benefits of screenings and she chooses colonoscopy, will refer for when she turns 45 in a few months. Return for fasting labs per plan below. Medications refilled per plan below. Keep appt with LUMBER MARKER this week. Keep appt with ENT today (she will message me an update as she had another episode of vertigo/dizzine ss last week). If not ENT cause, may consider referral to PT for neck/vertigo. Folloow up in 6 months for recheck, sooner if needed Not available 01/13/2025 09:30:01 Plan of Treatment Reminders Order Date Submit Date Provider Last Modified By Organization Details Last Modified Time Details Appointments None recorded. Lab lipid panel, serum 2024 025 [email or web address] [facility] ([facility], [address] [place] [address], [place], [address], 11:59:48 CMP, serum or plasma 2024 025 [email or web address] [facility] ([place]), [address] [place], [address], 11:59:48 CBC w/ auto diff 2024 [email or web address] [facility] ([place]), [address] [place], [address], 11:59:48 Referral None recorded. Procedures colonoscopy screening (PROC) - Schedule after March 11 (turns 45 then) 2024 [facility] Christophe Yepez MD, [address] [place] [address] [address], [place], [address], 12:03:56 Surgeries None recorded. Imaging MAMMO, screening, digital, bilateral - First available [address], [address] [place] [address] [address], [place], [address], 11:44:10 Medication Orders metronidazo le 500 mg tablet 2024 [facility], [address] [place] [address], [address], 05:01:07 buspirone 10 mg tablet [address] [facility] [address], [address] [place] [address], [address], 09:27:02 fluoxetine 40 mg capsule [address] [facility] [address], [address] [place] [address], [address], 09:27:02 Patient TargetsNo targets recorded. Patient InstructionsNo instructions recorded. Reason for Referral None Reported. Results Created Date Observation Date Name Description Value Unit Range Abnormal Flag Note LastModifiedBy Organization Detail LastModifiedTime 12/31/1912/31/2024 NUA B VAGIN ITIS PLUS (VG+) atopobium vaginae Low - 0 score Not Available [facility] ([facility]) [address] [place], [address], 01/01/2025 05:07:01 12/31/1912/31/2024 NUA B VAGIN ITIS PLUS (VG+) bvab 2 Low - 0 score Not Available [facility] ([facility]) [address] [facility], [place], [address], 01/01/2025 05:07:01 12/31/1912/31/2024 [facility] megasphaera 1 [...] prese nce of BV. Not Available [facility] ([facility]) [address] [facility], [place], [address], 01/01/2025 05:07:01 12/31/1901/01/2025 NUA B VAGIN ITIS PLUS (VG+) katt albicans, ANGIE Negati ve negati ve Not Available [facility] ([facility]) [address] [facility], [place], [address], 01/01/2025 05:07:01 12/31/1901/01/2025 NUA B VAGIN ITIS PLUS (VG+) katt glabrata, ANGIE Positi ve negati ve abnormal Publi shed data demon strat e that up to 65% of Leslye da glabr aditi ident ified in cases of vagin al leslye diasi s have decre ased susce ptibi lity to fluco nazol e. Not Available [facility] ([facility]) [address] [facility], [place], [address], 01/01/2025 05:07:01 12/31/19 25 01/01/2025 NUA B VAGIN ITIS PLUS (VG+) trich vag by ANGIE Negati ve negati ve Not Available [facility] ([facility]) [address] [facility], [place], [address], 01/01/2025 05:07:01 12/31/1901/01/2025 NUA B VAGIN ITIS PLUS (VG+) chlamydia trachomatis, ANGIE Negati ve negati ve Not Available [facility] ([facility]) [address] [facility], [place], [address], 01/01/2025 05:07:01 12/31/1901/01/2025 NUA B VAGIN ITIS PLUS (VG+) neisseria gonorrhoeae, ANGIE Negati ve negati ve Not Available [facility] ([facility]) [address] [facility], [place], [address], 01/01/2025 05:07:01 Result Notes None recorded. Problems Name Problem SNOMED Code Status Onset Date Resolution Date Notes Provider Name and Address Organization Details Recorded Time Depressiv e disorder 22548988 Active 2023 ADA POLLARD [address] [place] [address], [address], [employer] 4 08:25:31 Prediabet es 436492103 Active 2023 Angelique Terry NP [address] [place] [address], [address] 8, [employer] 5 13:29:23 Insomnia 865029817 Active 2023 ADA POLLARD [address] [place] [address], [address] 8, [employer] 4 08:25:33 Mixed hyperlipi demia 431255383 Active 2023 MELBA MC, [employer] [address] [place] [address], [address] 8, [employer] 4 08:25:35 Otitis externa of right ear 038609247017 9101 Completed 202308/07/2024 Angelique Terry NP [address] [place] [address], [address], [place] [employer] 5 13:04:21 Fatigue 45708890 Active 2023 Angelique Terry NP [address] [place] [address], [address] 8, [employer] 5 08:33:12 Snoring 23739151 Active 2023 Angelique Terry NP [address] [place] [address], [address] 8, [employer] 5 08:33:16 Abnormal cortisol 072313983 Completed 202308/07/2024 Angelique Terry NP [address] [place] [address], [address], [employer] 5 13:04:19 Acute sinusitis 11497675 Completed 202304/12/2024 Angelique Terry NP [address] [place] [address], [address] 8, [employer] 5 08:33:10 Fever 626814439 Completed 202304/12/2024 Angelique Terry NP [address] [place] [address], [address] 8, [employer] 5 08:33:14 Acute urinary tract infection 888653027 Completed 202408/07/2024 Angelique Terry NP [address] [place] [address], 863[address] 8, [employer] 5 13:04:24 Urinary symptoms 711837595 Completed 202408/07/2024 Angelique Terry, ANGIE [address] [place] [address], [address] 8, [employer] 13:04:26 Vaginitis 21345831 Completed 202408/07/2024 Angelique Terry, CUT ORDER HAND [address] [place] [address], [address] 8, [employer] 13:04:28 Pruritus of vagina 86225386 Completed 202412/30/2024 Angelique Terry NP [address] [place] [address], 635[address] 8, [employer] 09:40:43 Dysuria 89156615 Completed 202412/30/2024 Angelique Terry NP [address] [place] [address], [address] 8, [employer] 09:40:47 Bacterial vaginosis 753741044 Completed 202412/30/2024 Angelique Terry NP [address] [place] [address], [address] 8, [employer] 09:40:58 Candidal vulvovagi nitis 65609133 Completed 202412/30/2024 Angelique Terry NP [address] [place] [address], [address] 8, [employer] 09:40:56 Candidias is 04292649 Completed 202412/30/2024 Angelique Terry NP [address] [place] [address], 10[address] 8, [employer] 09:40:51 Dizziness 229406902 Active 2024 MAKEDA JIANG NP [address] [place] [address], [address] 8, [employer] 17:42:25 Ear sensation s - finding 581385753 Active 2024 MAKEDA JIANG, ANGIE [address] [place] [address], [address] 8, [employer] 10:15:32 Neck pain 62024453 Active 2024 Angelique [place], C[employer] [address] [place] [address], [address] 8, [employer] 09:52:56 Dysfuncti on of bilateral eustachia n tubes 597112377567 9100 Active 2024 Angelique Terry, CUT ORDER HAND [address] [place] [address], [address] 8, [employer] 09:53:02 History of hysterect katharina 928735703 Active 2024 Angelique Terry, ANGIE [address] [place] [address], [address] 8, [employer] 09:20:15 Migraine 84537166 Active 2024 Angelique Terry, ANGIE [address] [place] [address], [address] 8, [employer] 16:10:17 Problem Notes None recorded. Procedures Surgical History Date Name Laterality Status Provider Name and Address Organization Details Recorded Time 01/19/20 24 Most Recent Mammogram completed Kaela Santos [employer] 03/16/2024 08:12:56 03/09/20 15 Other completed Angelique Terry NP [address] [place] [address], [address], [employer] 01/13/2025 09:20:49 04/05/19 11 Other completed Angelique Terry NP [address] [place] [address], [address], [employer] 01/13/2025 09:20:55 Appendectomy completed PARM[facility]ER [employer] 04/06/2023 10:23:50 Partial Hysterectomy completed PARMINDERCISCO HAYS [employer] 04/06/2023 10:23:50 section completed DEBRA Marrero [employer] 04/06/2023 10:29:23 Carpal Tunnel Surgery completed [facility]MINDER [employer] 04/06/2023 10:29:33 repair of ankle completed [facility]MINDER [employer] 04/06/2023 10:29:42 Imaging Results None recorded. Procedure [...] propionate 50 mcg/actuati on nasal spray,suspe nsion [place] 1 spray every day by intranasa l [...] and Address Organization Details Last Updated DateTime 160.02 cm 33 kg/m2 75908.6 3 g 55 /min 95 % 95 % 136/85 mm[Hg] Kaela Santos [employer] 08:58:09 Social History Question Answer Notes LastModified by Organizat ion Details LastModified Time Tobacco Smoking Status Never Smoker [employer], [employer] 04/06/2023 10:23:49 Do You Have An Advance Directive? No [email or web address] Information not available 04/06/2023 Is Your Home Air Conditioned? Yes [email or web address] Information not available 04/06/2023 If You Are , What Was Your Level Of Alcohol Consumption Prior To ? None [email or web address] Information not available 12/30/2024 How Many Years Have You Consumed Alcohol? 20 Information not available 12/30/2024 Do You Wear A Helmet When Biking? No [email or web address] Information not available 04/06/2023 Are You Blind Or Do You Have Difficulty Seeing? No [email or web address] Information not available 04/06/2023 What Is Your Level Of Caffeine Consumption? Occasional [email or web address] Information not available 04/06/2023 Are You A Caregiver? No [email or web address] Information not available 12/30/2024 In The 14 Days Before Symptom Onset, Have You Had Close Contact With A Laboratory-confi rmed COVID-19 While That Case Was Ill? No [email or web address] Information not available 11/20/2023 In The 14 Days Before Symptom Onset, Have You Had Close Contact With A Person Who Is Under Investigation For COVID-19 While That Person Was Ill? No [email or web address] Information not available 11/20/2023 Have You Been To An Area Known To Be High Risk For COVID-19? No Information not available 07/06/2023 Are You Deaf Or Do You Have Serious Difficulty Hearing? No [email or web address] Information not available 04/06/2023 What Type Of Diet Are You Following? REGULAR [email or web address] Information not available 04/06/2023 What Is The Highest Grade Or Level Of School You Have Completed Or The Highest Degree You Have Received? BM53421-8 [email or web address] Information not available 12/30/2024 Who Is Your Employer? [employer] [email or web address] Information no t available 04/06/2023 Have There Been Any Changes To Your Family Or Social Situation? No [email or web address] Information not available 04/06/2023 Are There Any Guns Present In Your Home? No [email or web address] Information not available 04/06/2023 Which Of Your Hands Is Dominant? Right [email or web address] Information not available 04/06/2023 Do You Engage In Moderate/heavy Exercise (e.g. Brisk Walk, Jogging, Strength Training, Etc)? No [email or web address] Information not available 12/30/2024 What Is Your Home Situation? Other [email or web address] Information not available 04/06/2023 How Many Times In The Past Year Have You Used An Illegal Drug Or Used A Prescription Medication For Nonmedical Reasons? 0 [email or web address] Information not available 12/30/2024 Where Do You Live? SingleLevelHouse ofirhn947 Information not available 12/30/2024 Do You Have A Medical Power Of German Instructor? No Information not available 04/06/2023 What Was The Date Of Your Most Recent Tobacco Screening? 01/13/2025 Information not available 01/13/2025 Are There Any Occupational Health Risks Where You Work? No [email or web address] Information not available 04/06/2023 Have You Ever Been Counseled For Unhealthy Alcohol Use? No [email or web address] Information not available 11/17/2023 Do You Have Any Pets? Yes [email or web address] Information not available 04/06/2023 Do You Use Protection During Sex? No [email or web address] Information not available 04/06/2023 What Is Your Relationship Status? Single [email or web address] Information not available 04/06/2023 Have You Repeated Any Grades? Yes [email or web address] Information not available 04/06/2023 Do You Wear A Seatbelt When Driving Or As A Passenger? Yes [email or web address] Information not available 12/30/2024 Do You Use Your Seat Belt Or Car Seat Routinely? Yes [email or web address] Information not available 04/06/2023 Are You Sexually Active? Yes [email or web address] Information not available 04/06/2023 Do You Have Any Siblings? 1 Brother [email or web address] Information not available 04/06/2023 Do You Have Smoke And Carbon Monoxide Detectors In Your Home? Yes [email or web address] Information not available 04/06/2023 Are You Passively Exposed To Smoke? No [email or web address] Information not available 04/06/2023 Are There Any Smokers In Your House? No [email or web address] Information not available 04/06/2023 Do You Participate In Social Media? Yes [email or web address] Information not available 11/20/2023 What Types Of Sporting Activities Do You Participate In? Hunting, Fishing, Kayaking [email or web address] Information not available 04/06/2023 Do You Use Sunscreen Routinely? No [email or web address] Information not available 04/06/2023 Has Tobacco Cessation Counseling Been Provided? No [email or web address] Information not available 11/17/2023 Have You Recently Traveled Abroad? No [email or web address] Information not available 07/06/2023 Do You Have Difficulty Walking Or Climbing Stairs? No [email or web address] Information not available 04/06/2023 Are You Currently In School? No [email or web address] Information not available 11/20/2023 What Contraceptive Method Was Reported At Start Of This Visit? None Information not available 12/30/2024 Do You Feel Safe In Your Home? Yes Information not available 12/30/2024 Do You Have Any Dietary Restrictions? No [email or web address] Information not available 11/20/2023 How Many Days In The Past Year Have You Consumed 4 Or More Drinks? 0 [email or web address] Information not available 12/30/2024 What Is Your Reason For Having No Contraceptive Method At Start Of This Visit? Other [email or web address] Information not available 12/30/2024 Sex: Female Functional Status Question Answer Note LastModified by Organizat ion Details LastModified Time How many times per week do you consume alcohol? Less than 1 time per week [email or web address] Information not available 12/30/2024 Do you use any illicit or recreational drugs? No [email or web address] Information not available 04/06/2023 Do you feel safe in your relationship? Yes [email or web address] Information not available 12/30/2024 Do you or have you ever used any other forms of tobacco or nicotine? No [email or web address] Information not available 04/06/2023 What is your level of alcohol consumption? Occasional [email or web address] Information not available 04/06/2023 Are you currently employed? Yes Information not available 04/06/2023 Do you have transportation difficulties? No [email or web address] Information not available 11/20/2023 Are you able to walk independently without assistance or assistive devices? YESWOREST [email or web address] Information not available 04/06/2023 Do you have difficulty doing errands alone? No [email or web address] Information not available 04/06/2023 Are you able to care for yourself independently? Yes guttklwik183 Information not available 04/06/2023 Do you have difficulty dressing, bathing, grooming, or toileting? No [email or web address] Information not available 04/06/2023 What is your exercise level? Occasional Information not available 03/16/2024 Mental Status Question Answer Note LastModified by Organizat ion Details LastModified Time Do you feel stressed (tense, restless, nervous, or anxious, or unable to sleep at night)? [id number] Information not available 01/05/2024 Do you have difficulty concentrating, remembering or making decisions? Yes [email or web address] Information no t available 04/06/2023 Are you or have you been involved with bullying? No [email or web address] Information not available 04/06/2023 Family History Relationship Description Onset Age of this Age Resolved Age Notes LastModified by Organization Details LastModified Time Mother Anxiety disorder [email or web address] Not available 01/2024 10:23:48 Mother Hypertensive disorder [email or web address] Not available 01/2024 10:23:49 Brother Hypertensive disorder [email or web address] Not available 01/2024 10:23:49 Father Hypertensive disorder [email or web address] Not available 01/2024 10:23:49 Medical History Condition Response Coronary Artery Disease N Other N Gout N Blood Diseases N Kidney Stones N Hyperthyroidism N Blood Transfusion N Breast Cancer N Emergency room visit since last appointm ent. N Lung Disease N COPD N Depression N Dermatologic Disorders N Hypothyroidism N Defects or Inherited Disease N Developmental or Behavioral Disorders N Breast Problem N Difficulty Swallowing N [...] N High Cholesterol N Liver Disease N Psychiatric/Mental Health Condition N Organ Transplant N Dialysis N Schizophrenia N Fibromyalgia N Headaches N Kidney Disease N Allergies/Hayfever N Heart Problems N Ear or Hearing Problems N Hospitalizations N Learning Disorder N Artificial Joints N Thyroid Problems N GI Problems N Acne N ADD/ADHD N Eating Disorder N Anemia N Constipation N Mental Illness N Diabetes N Ovarian Cancer N Bedwetting N Hepatitis/Liver Disease N Tuberculosis N Eczema N Abuse/Domestic Violence N Diverticulitis N Asthma N Trauma/Violence N Substance Abuse [...] Immunizations Vaccine Type Date Status Note Provider Nam e and Address Organization Details Recorded Time COVID-19, mRNA, LNP-S, PF, 30 mcg/0.3 mL dose 01/18/2021 completed Not Available [facility] 08:46:53 Past Encounters Encounter ID Performer Location Encounter Start Date Encounter Closed Date Diagnosis/Indication Diagnosis SNOMED-CT Code Diagnosis ICD10 Code Diagnosis IMO Codes Diagnosis Note [id number] MAKEDA JIANG, ANGIE [place] [address] 0 12/20/2024 16:37:43 12/23/2024 14:46:17 Dizziness 025844092 R42 78418 Ear sensat ions - finding 678802492 H93.8X3 47489272 Discussed use of fluticason e. [id number] Angelique TerryANGIE [place] [address] 0 12/30/2024 09:20:46 12/30/2024 10:00:12 Neck pain 05090381 M54.2 90070 Dysfunctio n of bilateral eustachian tubes 5481411629 217380 H69.93 50108182 Vaginitis 69184817 N76.0 [id number] Angelique TerryANGIE [place] [address] 0 01/13/2025 08:45:55 01/13/2025 09:58:43 Active or passive immunization 745199632 Z23 Tdap recommende d, declined today, but will think about it next time.will get flu shot at work Bacterial vaginosis 4197 71198 N76.0 B96.89 Depressive disorder 3548 9007 F32.A Screening mammography 24 248555 Z12.31 06744363 Screening colonoscopy 44 5069052 Z12.11 880706 General ex amination of patient 527863314 Z00.00 23542900 Hyperlipid emia screening 209509545 Z13.220 408240 Health Concerns Section Related Observation LastModified by Organization Detai ls LastModified Time None Recorded Concern Status LastModified by Organization Details LastModified Time None Recorded Payers Encounter Date Sequence Insurance Name Policy Number Policy Forbes Covered Member ID Forbes Member ID Guarantor Name 01/13/2025 1 [employer]: [place] [employer] [id number] Araceli David [id number] Araceli David Notes Date Note Type Note Provider Name and Address Organization Details Recorded Time 01/13/2025 text/html Annual WellnessReported by PatientSocial/Behavior al [...] states her neck has been hurting. Angelique Terry, ANGIE [address] [place] [address], [place], [address], [facility] [employer] 01/13/2025 09:32:17 OBGyn Episode No OBEpisode recorded.
--- OUTSIDE RECORDS SUMMARY | 2025-02-04 13:49 | XMS_ITS | Patient Health Record ---
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 Yes Drugs/Alcohol: Social Info Question Answer Notes Drugs Have you used drugs other than those for medical reasons in the past 12 months? No Alcohol Screen Did you have a drink containing alcohol in the past year? Yes Points 0 Interpretation Negative Tobacco Use: Social Info Question Answer Notes Tobacco Use/Smoking Are you a former smoker Tobacco use other than smoking: Are you an other tobac co user? No Plan Of Treatment No Information
--- OUTSIDE RECORDS SUMMARY | 2025-02-04 13:49 | XMS_ITS | Continuity of Care Document ---
Author Organization [place] - [employer] [facility] Address [address] [place] [phone] Assessment Encounter Date Assessment Date Assessment LastModified by Organization Details LastModified Time 12/30/2024 12/30/2024 Patient will call her [employer] for follow up on ongoing recurrent vaginitis. [...] sooner if needed. Not available 12/30/2024 10:05:57 Plan of Treatment Reminders Order Date Submit Date Provider Last Modified By Organization Details Last Modified Time Details Appointments None recorded. Lab vaginal pathogens panel, ANGIE+probe, vaginal fluid 2024 025 [facility], [address] [place] [address], [place], [address], 05:07:01 Referral None recorded. Procedures None recorded. Surgeries None recorded. Imaging None recorded. Medication Orders tizanidine 4 mg tablet 2024 025 [facility], [address] [place] [address], [address], 10:21:38 fluconazole 150 mg tablet 2024 025 [facility], [address] [place] [address], [address], 09:35:55 Medrol ([place]) 4 mg tablets in a dose pack 2024 025 [facility], [address] [place] [address], [address], 09:35:54 Patient TargetsNo targets recorded. Patient InstructionsNo instructions recorded. Reason for Referral None Reported. Results Created Date Observation Date Name Description Value Unit Range Abnormal Flag Note LastModifiedBy Organization Detail LastModifiedTime 12/31/1912/31/2024 NUA B VAGIN ITIS PLUS (VG+) atopobium vaginae Low - 0 score Not Available [facility] ([facility]) [address] [facility], [place], [address], 01/01/2025 05:07:01 12/31/1912/31/2024 NUA B VAGIN ITIS PLUS (VG+) bvab 2 Low - 0 score Not Available [facility] ([facility]) [address] [facility], [place], [address], 01/01/2025 05:07:01 12/31/1912/31/2024 NUA B VAGIN ITIS PLUS (VG+) megasphaera [...] prese nce of BV. Not Available [facility] ([facility]) [address] [facility], [place], [address], 01/01/2025 05:07:01 12/31/19 25 01/01/2025 NUSWA B VAGIN ITIS PLUS (VG+) katt albicans, ANGIE Negati ve negati ve Not Available [facility] ([facility]) [address] [place], [address], 01/01/2025 05:07:01 12/31/1901/01/2025 NUSWA B VAGIN ITIS PLUS (VG+) katt glabrata, ANGIE Positi ve negati ve abnormal Publi shed data demon strat e that up to 65% of Leslye da glabr aditi ident ified in cases of vagin al leslye diasi s have decre ased susce ptibi lity to fluco nazol e. Not Available [facility] ([facility]) [address] [place], [address], 01/01/2025 05:07:01 12/31/1901/01/2025 NUA B VAGIN ITIS PLUS (VG+) trich vag by ANGIE Negati ve negati ve Not Available [facility] ([facility]) [address] [place], [address], 01/01/2025 05:07:01 12/31/1901/01/2025 NUA B VAGIN ITIS PLUS (VG+) chlamydia trachomatis, ANGIE Negati ve negati ve Not Available [facility] ([facility]) [address] [place], [address], 01/01/2025 05:07:01 12/31/1901/01/2025 NUA B VAGIN ITIS PLUS (VG+) neisseria gonorrhoeae, ANGIE Negati ve negati ve Not Available [facility] ([facility]) [address] [place], [address], 01/01/2025 05:07:01 Result Notes None recorded. Problems Name Problem SNOMED Code Status Onset Date Resolution Date Notes Provider Name and Address Organization Details Recorded Time Depressiv e disorder 56233705 Active 2023 MELBA MC [address], [address], [place] [facility] [employer] 4 08:25:31 Prediabet es 602343905 Active 2023 Angelique Harrison, [employer] [address] [place] [address], [address], [place] [facility] [facility] [employer] 5 13:29:23 Insomnia 440416221 Active 2023 MELBA MC [address], [address], [place] [facility] [employer] [facility] [employer] 4 08:25:33 Mixed hyperlipi demia 721835709 Active 2023 MELBA MC [address], [address], [place] [facility] [facility] 4 08:25:35 Otitis externa of right ear 264675204976 9101 Completed 202308/07/2024 Angelique Terry NP [address] [place] [address], [address], [place] [facility] [employer] [facility] [employer] 5 13:04:21 Fatigue 78970990 Active 2023 Angelique Terry NP [address] [place] [address], [address], [place] [facility] [employer] [facility] [employer] 5 08:33:12 Snoring 39124594 Active 2023 Angelique Terry NP [address] [place] [address], [address], [place] [employer] [employer] [facility] [employer] 5 08:33:16 Abnormal cortisol 966419645 Completed 202308/07/2024 Angelique Terry NP [address] [place] [address], [address], [place] [facility] [employer] [facility] [employer] 5 13:04:19 Acute sinusitis 47945164 Completed 202304/12/2024 Angelique Terry NP [address] [place] [address], [address], [place] [employer] 08:33:10 Fever 402719525 Completed 202304/12/2024 Angelique Terry NP [address] [place] [address], [address], [place] [employer] 08:33:14 Acute urinary tract infection 113366126 Completed 202408/07/2024 Angelique Terry NP [address] [place] [address], [address], [place] [employer] 13:04:24 Urinary symptoms 255643907 Completed 202408/07/2024 Angelique Terry NP [address] [place] [address], [address], [place] [employer] 13:04:26 Vaginitis 56949053 Completed 202408/07/2024 Angelique Terry NP [address] [place] [address], [address], [place] [employer] 13:04:28 Pruritus of vagina 57469816 Completed 202412/30/2024 Angelique Terry NP [address] [place] [address], [address], [place] [employer] 09:40:43 Dysuria 75781863 Completed 202412/30/2024 Angelique Terry NP [address] [place] [address], [address], [place] [employer] 09:40:47 Bacterial vaginosis 488251733 Completed 202412/30/2024 Angelique Terry NP [address] [place] [address], [address], [place] [employer] 09:40:58 Candidal vulvovagi nitis 91942295 Completed 202412/30/2024 Angelique Terry NP [address] [place] [address], [address], [employer] 09:40:56 Candidias is 52144148 Completed 202412/30/2024 Angelique Terry NP [address] [place] [address], [address], [employer] 09:40:51 Dizziness 626954580 Active 2024 MAKEDA JIANG NP [address] [place] [address], [address], [employer] 17:42:25 Ear sensation s - finding 111368074 Active 2024 MAKEDA JIANG NP [address] [place] [address], [address], [employer] 10:15:32 Neck pain 38239002 Active 2024 Angelique Terry NP [address] [place] [address], [address], [employer] 09:52:56 Dysfuncti on of bilateral eustachia n tubes 943543512793 9100 Active 2024 Angelique Terry NP [address] [place] [address], [address], [employer] 09:53:02 History of hysterect katharina 345488805 Active 2024 Angelique Terry NP [address] [place] [address], [address], [employer] 09:20:15 Migraine 90211744 Active 2024 Angelique Terry NP [address] [place] [address], [address], [employer] 16:10:17 Problem Notes None recorded. Procedures Surgical History Date Name Laterality Status Provider Name and Address Organization Details Recorded Time 01/19/20 Most Recent Mammogram completed Kaela Santos [employer] 03/16/2024 08:12:56 03/09/20 15 Other completed Angelique Terry, [employer] [address] [facility], [place], [address], [employer] 01/13/2025 09:20:49 04/05/19 11 Other completed Angelique Harrison, [employer] [address] [facility], [place], [address], [employer] 01/13/2025 09:20:55 Appendectomy completed [employer] 04/06/2023 10:23:50 Partial Hysterectomy completed [employer]. 04/06/2023 10:23:50 section completed DE[facility] [employer] 04/06/2023 10:29:23 Carpal Tunnel Surgery completed [employer] 04/06/2023 10:29:33 repair of ankle completed [employer]. 04/06/2023 10:29:42 Imaging Results None recorded. Procedure [...] propionate 50 mcg/actuati on nasal spray,suspe nsion [place] 1 spray every day by intranasa l [...] Updated DateTime 5 160.02 cm 32.6 kg/m2 11514.7 5 g 52 /min 96 % 96 % 139/85 mm[Hg] Kaela Santos [employer] 09:36:21 Social History Question Answer Notes LastModified by Organizat ion Details LastModified Time Tobacco Smoking Status Never Smoker [employer] 04/06/2023 10:23:49 Do You Have An Advance Directive? No [email or web address] Information not available 04/06/2023 Is Your Home Air Conditioned? Yes [email or web address] Information not available 04/06/2023 If You Are , What Was Your Level Of Alcohol Consumption Prior To ? None [email or web address] Information not available 12/30/2024 How Many Years Have You Consumed Alcohol? 20 [email or web address] Information not available 12/30/2024 Do You Wear A Helmet When Biking? No [email or web address] Information not available 04/06/2023 Are You Blind Or Do You Have Difficulty Seeing? No [email or web address] Information not available 04/06/2023 What Is Your Level Of Caffeine Consumption? Occasional Information not available 04/06/2023 Are You A Caregiver? No Information not available 12/30/2024 In The 14 Days Before Symptom Onset, Have You Had Close Contact With A Laboratory-confi rmed COVID-19 While That Case Was Ill? No [email or web address] Information not available 11/20/2023 In The 14 Days Before Symptom Onset, Have You Had Close Contact With A Person Who Is Under Investigation For COVID-19 While That Person Was Ill? No [email or web address] Information not available 11/20/2023 Have You Been To An Area Known To Be High Risk For COVID-19? No Information not available 07/06/2023 Are You Deaf Or Do You Have Serious Difficulty Hearing? No [email or web address] Information not available 04/06/2023 What Type Of Diet Are You Following? REGULAR [email or web address] Information not available 04/06/2023 What Is The Highest Grade Or Level Of School You Have Completed Or The Highest Degree You Have Received? EF29306-1 [email or web address] Information not available 12/30/2024 Who Is Your Employer? [employer] [email or web address] Information no t available 04/06/2023 Have There Been Any Changes To Your Family Or Social Situation? No [email or web address] Information not available 04/06/2023 Are There Any Guns Present In Your Home? No [email or web address] Information not available 04/06/2023 Which Of Your Hands Is Dominant? Right [email or web address] Information not available 04/06/2023 Do You Engage In Moderate/heavy Exercise (e.g. Brisk Walk, Jogging, Strength Training, Etc)? No [email or web address] Information not available 12/30/2024 What Is Your Home Situation? Other [email or web address] Information not available 04/06/2023 How Many Times In The Past Year Have You Used An Illegal Drug Or Used A Prescription Medication For Nonmedical Reasons? 0 Information not available 12/30/2024 Where Do You Live? SingleLevelHouse [email or web address] Information not available 12/30/2024 Do You Have A Medical Power Of Manager Of Finance? No [email or web address] Information not available 04/06/2023 What Was The Date Of Your Most Recent Tobacco Screening? 01/13/2025 Information not available 01/13/2025 Are There Any Occupational Health Risks Where You Work? No [email or web address] Information not available 04/06/2023 Have You Ever Been Counseled For Unhealthy Alcohol Use? No [email or web address] Information not available 11/17/2023 Do You Have Any Pets? Yes [email or web address] Information not available 04/06/2023 Do You Use Protection During Sex? No [email or web address] Information not available 04/06/2023 What Is Your Relationship Status? Single Information not available 04/06/2023 Have You Repeated Any Grades? Yes [email or web address] Information not available 04/06/2023 Do You Wear A Seatbelt When Driving Or As A Passenger? Yes Information not available 12/30/2024 Do You Use Your Seat Belt Or Car Seat Routinely? Yes [email or web address] Information not available 04/06/2023 Are You Sexually Active? Yes [email or web address] Information not available 04/06/2023 Do You Have Any Siblings? 1 Brother [email or web address] Information not available 04/06/2023 Do You Have Smoke And Carbon Monoxide Detectors In Your Home? Yes [email or web address] Information not available 04/06/2023 Are You Passively Exposed To Smoke? No [email or web address] Information not available 04/06/2023 Are There Any Smokers In Your House? No [email or web address] Information not available 04/06/2023 Do You Participate In Social Media? Yes [email or web address] Information not available 11/20/2023 What Types Of Sporting Activities Do You Participate In? Hunting, Fishing, Kayaking [email or web address] Information not available 04/06/2023 Do You Use Sunscreen Routinely? No [email or web address] Information not available 04/06/2023 Has Tobacco Cessation Counseling Been Provided? No [email or web address] Information not available 11/17/2023 Have You Recently Traveled Abroad? No [email or web address] Information not available 07/06/2023 Do You Have Difficulty Walking Or Climbing Stairs? No [email or web address] Information not available 04/06/2023 Are You Currently In School? No [email or web address] Information not available 11/20/2023 What Contraceptive Method Was Reported At Start Of This Visit? None [email or web address] Information not available 12/30/2024 Do You Feel Safe In Your Home? Yes [email or web address] Information not available 12/30/2024 Do You Have Any Dietary Restrictions? No [email or web address] Information not available 11/20/2023 How Many Days In The Past Year Have You Consumed 4 Or More Drinks? 0 [email or web address] Information not available 12/30/2024 What Is Your Reason For Having No Contraceptive Method At Start Of This Visit? Other [email or web address] Information not available 12/30/2024 Sex: Female Functional Status Question Answer Note LastModified by [employer] ion Details LastModified Time How many times per week do you consume alcohol? Less than 1 time per week [email or web address] Information not available 12/30/2024 Do you use any illicit or recreational drugs? No [email or web address] Information not available 04/06/2023 Do you feel safe in your relationship? Yes [email or web address] Information not available 12/30/2024 Do you or have you ever used any other forms of tobacco or nicotine? No [email or web address] Information not available 04/06/2023 What is your level of alcohol consumption? Occasional [email or web address] Information not available 04/06/2023 Are you currently employed? Yes [email or web address] Information not available 04/06/2023 Do you have transportation difficulties? No [email or web address] Information not available 11/20/2023 Are you able to walk independently without assistance or assistive devices? [employer]ST [email or web address] Information not available 04/06/2023 Do you have difficulty doing errands alone? No [email or web address] Information not available 04/06/2023 Are you able to care for yourself independently? Yes [email or web address] Information not available 04/06/2023 Do you have difficulty dressing, bathing, grooming, or toileting? No [email or web address] Information not available 04/06/2023 What is your exercise level? Occasional Information not available 03/16/2024 Mental Status Question Answer Note LastModified by Organizat ion Details LastModified Time Do you feel stressed (tense, restless, nervous, or anxious, or unable to sleep at night)? AL2712-1 [email or web address] Information not available 01/05/2024 Do you have difficulty concentrating, remembering or making decisions? Yes [email or web address] Information no t available 04/06/2023 Are you or have you been involved with bullying? No [email or web address] Information not available 04/06/2023 Family History Relationship Description Onset Age of this Age Resolved Age Notes LastModified by Organization Details LastModified Time Mother Anxiety disorder [email or web address] Not available 01/2024 10:23:48 Mother Hypertensive disorder [email or web address] Not available 01/2024 10:23:49 Brother Hypertensive disorder [email or web address] Not available 01/2024 10:23:49 Father Hypertensive disorder [email or web address] Not available 01/2024 10:23:49 Medical History Condition [...] mcg/0.3 mL dose 01/18/2021 completed [facility] 08[facility] Past Encounters Encounter ID Performer Location Encounter Start Date Encounter Closed Date Diagnosis/Indication Diagnosis SNOMED-CT Code Diagnosis ICD10 Code Diagnosis IMO Codes Diagnosis Note [id number] [place] [address] 12/20/2024 16:37:43 12/23/2024 14:46:17 Dizziness 216289014 R42 99923 Ear sensat ions - finding 444543798 H93.8X3 10419802 Discussed use of fluticason e. [id number] [place] [address] 12/30/2024 09:20:46 12/30/2024 10:00:12 Neck pain 61339874 M54.2 38943 Dysfunctio n of bilateral eustachian tubes 7316863713 169871 H69.93 56658126 Vaginitis 19730374 N76.0 Health Concerns Section Related Observation LastModified by Organization Detai ls LastModified Time None Recorded Concern Status LastModified by Organization Details LastModified Time None Recorded Payers Encounter Date Sequence Insurance Name Policy Number Policy Forbes Covered Member ID Forbes Member ID Guarantor Name 12/30/2024 1 [employer] [employer] 111 Araceli David [id number] Araceli David Notes Date Note Type Note Provider Name and Address Organization Details Recorded Time 12/30/2024 text/html Patient presents for evaluation of [...] for several months now. She has seen [employer] and been treated for BV and yeast vaginitis, but symptoms continue to recur. She tried OTC probiotic as well. Symptoms returned last week. Angelique Terry NP [address] [facility], [place], [address], [place] [employer] 12/30/2024 10:06:17 OBGyn Episode No OBEpisode recorded.
--- OUTSIDE RECORDS SUMMARY | 2025-02-04 13:49 | XMS_ITS | Continuity of Care Document ---
Author Organization [facility] [employer] [facility] Address [address] [place] [id number] Assessment No assessment recorded. Plan of Treatment Reminders Order Date Submit Date Provider Last Modified By Organization Details Last Modified Time Details Appointments None recorded. Lab None recorded. Referral None recorded. Procedures None recorded. Surgeries None recorded. Imaging None recorded. Medication Orders meclizine 25 mg chewable tablet 2024 025 [facility], [address] [place] [address], [id number], 09:47:47 fluticasone propionate 50 mcg/actuati on nasal spray,suspe nsion 2024 025 [facility], [address] [place] [address], [id number], 18:14:58 Patient TargetsNo targets recorded. Patient Instructions Encounter Date Encounter Id Patient Instructions Last Modified By Organization Details Last Modified Time 12/20/2024 [id number] dizziness: care instructions [email or web address] Not available 12/20/2024 17:47:56 Reason for Referral None Reported. Problems Name Problem SNOMED Code Status Onset Date Resolution Date Notes Provider Name and Address Organization Details Recorded Time Depressiv e disorder 06930455 Active 2023 MAITE POLLARD-[address], [address], [employer] 4 08:25:31 Prediabet es 321105797 Active 2023 Angelique Terry, ANGIE [address] [place] [address], [address], [place] [employer] [facility] [employer] 5 13:29:23 Insomnia 358305544 Active 2023 MELBA MC [address], [address], [place] [employer] [facility] 4 08:25:33 Mixed hyperlipi demia 717357704 Active 2023 MELBA MC, [address], [address], [place] [employer] [facility] 4 08:25:35 Otitis externa of right ear 505761539151 9101 Completed 202308/07/2024 Angelique Terry NP [address] [place] [address], [address], [place] [employer] [facility] 5 13:04:21 Fatigue 60707664 Active 2023 Angelique Terry NP [address] [place] [address], [address], [place] [employer] [facility] [employer] [employer] 5 08:33:12 Snoring 67420090 Active 2023 Angelique Terry NP [address] [place] [address], [address], [place] [employer] [facility] 5 08:33:16 Abnormal cortisol 935232258 Completed 202308/07/2024 Angelique Terry NP [address] [place] [address], [address], [place] [employer] [facility] 5 13:04:19 Acute sinusitis 23496100 Completed 202304/12/2024 Angelique Terry NP [address] [place] [address], [address], [place] [employer] [facility] 5 08:33:10 Fever 709378466 Completed 202304/12/2024 Angelique Terry NP [address] [place] [address], [address], [place] [employer] [facility] [employer] 08:33:14 Acute urinary tract infection 678818953 Completed 202408/07/2024 Angelique Terry NP [address] [place] [address], [address], [place] [employer] [facility] 13:04:24 Urinary symptoms 064645584 Completed 202408/07/2024 Angelique Terry NP [address] [place] [address], [address], [place] [employer] 13:04:26 Vaginitis 22495578 Completed 202408/07/2024 Angelique Terry NP [address] [place] [address], [address], [place] [facility] 13:04:28 Pruritus of vagina 87758892 Completed 202412/30/2024 Angelique Terry NP [address] [place] [address], [address], [place] [facility] [employer] 09:40:43 Dysuria 13189760 Completed 202412/30/2024 Angelique Terry NP [address] [place] [address], [address], [place] [facility] [employer] 09:40:47 Bacterial vaginosis 802730737 Completed 202412/30/2024 Angelique Terry NP [address] [place] [address], [address], [place] [employer] [employer] 09:40:58 Candidal vulvovagi nitis 07815199 Completed 202412/30/2024 Angelique Terry NP [address] [place] [address], [address], [place] [facility] [employer] 09:40:56 Candidias is [id number] Completed 202412/30/2024 Angelique Terry NP [address] [place] [address], [address], [employer] 09:40:51 Dizziness 845344196 Active 2024 MAKEDA JIANG NP [address] [place] [address], [address], [employer] 17:42:25 Ear sensation s - finding 588796162 Active 2024 MAKEDA JIANG NP [address] [place] [address], [address], [employer] 10:15:32 Neck pain 74778048 Active 2024 Angelique Terry NP [address] [place] [address], [address], [employer] 09:52:56 Dysfuncti on of bilateral eustachia n tubes 787375494624 9100 Active 2024 Angelique Terry NP [address] [place] [address], [address], [employer] 09:53:02 History of hysterect katharina 098301257 Active 2024 Angelique Terry NP [address] [place] [address], [address], [employer] 09:20:15 Migraine 96067416 Active 2024 Angelique Terry NP [address] [place] [address], [address], [employer] 16:10:17 Problem Notes None recorded. Procedures Surgical History Date Name Laterality Status Provider Name and Address Organization Details Recorded Time 01/19/20 24 Most Recent Mammogram completed Kaela Santos [employer] 03/16/2024 08:12:56 03/09/20 15 Other completed Angelqiue Terry NP [address] [place] [address], [address], [employer] 01/13/2025 09:20:49 04/05/19 11 Other completed Angelique Terry NP [address] [facility] [place], [address], [employer] [facility] [employer] 01/13/2025 09:20:55 Appendectomy completed [employer] [facility] [employer] 04/06/2023 10:23:50 Partial Hysterectomy completed [employer] [facility] [employer] 04/06/2023 10:23:50 section completed DEBRA E HAYS [employer] [facility] [employer] 04/06/2023 10:29:23 Carpal Tunnel Surgery completed [employer] [facility] [employer] 04/06/2023 10:29:33 repair of ankle completed [employer] 04/06/2023 10:29:42 Imaging Results None recorded. Procedure [...] propionate 50 mcg/actuati on nasal spray,suspe nsion [place] 1 spray every day by intranasa l [...] Organization Details Last Updated DateTime 160.02 cm 32.1 kg/m2 52526.3 2 g 96 % 96 % 59 /min 98 [degF] 122/85 mm[Hg] Flory Neal [employer] 17:05:23 Social History Question Answer Notes LastModified by Organizat ion Details LastModified Time Tobacco Smoking Status Never Smoker [employer] 04/06/2023 10:23:49 Do You Have An Advance Directive? No Information not available 04/06/2023 Is Your Home Air Conditioned? Yes [email or web address] Information not available 04/06/2023 If You Are , What Was Your Level Of Alcohol Consumption Prior To ? None [email or web address] Information not available 12/30/2024 How Many Years Have You Consumed Alcohol? 20 Information not available 12/30/2024 Do You Wear A Helmet When Biking? No [email or web address] Information not available 04/06/2023 Are You Blind Or Do You Have Difficulty Seeing? No [email or web address] Information not available 04/06/2023 What Is Your Level Of Caffeine Consumption? Occasional [email or web address] Information not available 04/06/2023 Are You A Caregiver? No [email or web address] Information not available 12/30/2024 In The 14 Days Before Symptom Onset, Have You Had Close Contact With A Laboratory-confi rmed COVID-19 While That Case Was Ill? No [email or web address] Information not available 11/20/2023 In The 14 Days Before Symptom Onset, Have You Had Close Contact With A Person Who Is Under Investigation For COVID-19 While That Person Was Ill? No [email or web address] Information not available 11/20/2023 Have You Been To An Area Known To Be High Risk For COVID-19? No [email or web address] Information not available 07/06/2023 Are You Deaf Or Do You Have Serious Difficulty Hearing? No [email or web address] Information not available 04/06/2023 What Type Of Diet Are You Following? REGULAR [email or web address] Information not available 04/06/2023 What Is The Highest Grade Or Level Of School You Have Completed Or The Highest Degree You Have Received? LC95943-5 [email or web address] Information not available 12/30/2024 Who Is Your Employer? [employer] [email or web address] Information no t available 04/06/2023 Have There Been Any Changes To Your Family Or Social Situation? No [email or web address] Information not available 04/06/2023 Are There Any Guns Present In Your Home? No [email or web address] Information not available 04/06/2023 Which Of Your Hands Is Dominant? Right [email or web address] Information not available 04/06/2023 Do You Engage In Moderate/heavy Exercise (e.g. Brisk Walk, Jogging, Strength Training, Etc)? No [email or web address] Information not available 12/30/2024 What Is Your Home Situation? Other [email or web address] Information not available 04/06/2023 How Many Times In The Past Year Have You Used An Illegal Drug Or Used A Prescription Medication For Nonmedical Reasons? 0 [email or web address] Information not available 12/30/2024 [place] You [place] [email or web address] Information not available 12/30/2024 Do You Have A Medical Power Of Certified Driver Examiner? No [email or web address] Information not available 04/06/2023 What Was The Date Of Your Most Recent Tobacco Screening? 01/13/2025 Information not available 01/13/2025 Are There Any Occupational Health Risks Where You Work? No Information not available 04/06/2023 Have You Ever Been Counseled For Unhealthy Alcohol Use? No [email or web address] Information not available 11/17/2023 Do You Have Any Pets? Yes [email or web address] Information not available 04/06/2023 Do You Use Protection During Sex? No Information not available 04/06/2023 What Is Your Relationship Status? Single [email or web address] Information not available 04/06/2023 Have You Repeated Any Grades? Yes [email or web address] Information not available 04/06/2023 Do You Wear A Seatbelt When Driving Or As A Passenger? Yes Information not available 12/30/2024 Do You Use Your Seat Belt Or Car Seat Routinely? Yes [email or web address] Information not available 04/06/2023 Are You Sexually Active? Yes [email or web address] Information not available 04/06/2023 Do You Have Any Siblings? 1 Brother [email or web address] Information not available 04/06/2023 Do You Have Smoke And Carbon Monoxide Detectors In Your Home? Yes [email or web address] Information not available 04/06/2023 Are You Passively Exposed To Smoke? No [email or web address] Information not available 04/06/2023 Are There Any Smokers In Your House? No [email or web address] Information not available 04/06/2023 Do You Participate In Social Media? Yes [email or web address] Information not available 11/20/2023 What Types Of Sporting Activities Do You Participate In? Hunting, Fishing, Kayaking [email or web address] Information not available 04/06/2023 Do You Use Sunscreen Routinely? No [email or web address] Information not available 04/06/2023 Has Tobacco Cessation Counseling Been Provided? No [email or web address] Information not available 11/17/2023 Have You Recently Traveled Abroad? No [email or web address] Information not available 07/06/2023 Do You Have Difficulty Walking Or Climbing Stairs? No Information not available 04/06/2023 Are You Currently In School? No [email or web address] Information not available 11/20/2023 What Contraceptive Method Was Reported At Start Of This Visit? None Information not available 12/30/2024 Do You Feel Safe In Your Home? Yes [email or web address] Information not available 12/30/2024 Do You Have Any Dietary Restrictions? No [email or web address] Information not available 11/20/2023 How Many Days In The Past Year Have You Consumed 4 Or More Drinks? 0 Information not available 12/30/2024 What Is Your Reason For Having No Contraceptive Method At Start Of This Visit? Other [email or web address] Information not available 12/30/2024 Sex: Female Functional Status Question Answer Note LastModified by Organizat ion Details LastModified Time How many times per week do you consume alcohol? Less than 1 time per week [email or web address] Information not available 12/30/2024 Do you use any illicit or recreational drugs? No [id number] Information not available 04/06/2023 Do you feel safe in your relationship? Yes [email or web address] Information not available 12/30/2024 Do you or have you ever used any other forms of tobacco or nicotine? No [email or web address] Information not available 04/06/2023 What is your level of alcohol consumption? Occasional Information not available 04/06/2023 Are you currently employed? Yes [email or web address] Information not available 04/06/2023 Do you have transportation difficulties? No [email or web address] Information not available 11/20/2023 Are you able to walk independently without assistance or assistive devices? YESWOREST [email or web address] Information not available 04/06/2023 Do you have difficulty doing errands alone? No [email or web address] Information not available 04/06/2023 Are you able to care for yourself independently? Yes Information not available 04/06/2023 Do you have difficulty dressing, bathing, grooming, or toileting? No Information not available 04/06/2023 What is your exercise level? Occasional [email or web address] Information not available 03/16/2024 Mental Status Question Answer Note LastModified by Organizat ion Details LastModified Time Do you feel stressed (tense, restless, nervous, or anxious, or unable to sleep at night)? [id number] Information not available 01/05/2024 Do you have difficulty concentrating, remembering or making decisions? Yes [email or web address] Information no t available 04/06/2023 Are you or have you been involved with bullying? No [email or web address] Information not available 04/06/2023 Family History Relationship Description Onset Age of this Age Resolved Age Notes LastModified by Organization Details LastModified Time Mother Anxiety disorder [email or web address] Not available 01/2024 10:23:48 Mother Hypertensive disorder [email or web address] Not available 01/2024 10:23:49 Brother Hypertensive disorder [email or web address] Not available 01/2024 10:23:49 Father Hypertensive disorder [email or web address] Not available 01/2024 10:23:49 Medical History Condition [...] mcg/0.3 mL dose 01/18/2021 completed Not Available [employer] 08:46:53 Past Encounters Encounter ID Performer Location Encounter Start Date Encounter Closed Date Diagnosis/Indication Diagnosis SNOMED-CT Code Diagnosis ICD10 Code Diagnosis IMO Codes Diagnosis Note [id number] MAKEDA JIANG NP [address] [address] 12/20/2024 16:37:43 12/23/2024 14:46:17 Dizziness 297240341 R42 97484 Ear sensat ions - finding 480172558 H93.8X3 94433404 Discussed use of fluticason e. Health Concerns Section Related Observation LastModified by Organization Detai ls LastModified Time None Recorded Concern Status LastModified by Organization Details LastModified Time None Recorded Payers Encounter Date Sequence Insurance Name Policy Number Policy Forbes Covered Member ID Forbes Member ID Guarantor Name 12/20/2024 1 [place] [employer] [id number] Araceli E Frankie [id number] Araceli David Notes Date Note Type Note Provider Name and Address Organization Details Recorded Time 12/20/2024 text/html ROS as noted in the [...] viewing a screen. Denies other concerns. MAKEDA JIANG NP [address] [place], [address], [facility] [employer] 12/23/2024 10:17:35 OBGyn Episode No OBEpisode recorded.
--- OUTSIDE RECORDS SUMMARY | 2025-02-04 13:49 | XMS_ITS | Encounter Summary ---
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
--- OUTSIDE RECORDS SUMMARY | 2025-02-04 13:49 | XMS_ITS | Data Portability ---
Author Organization [facility] ADMIN Address [address] [place] [id number] Assessment No assessment recorded. Plan of Treatment Reminders Order Date Submit Date Provider Last Modified By Organization Details Last Modified Time Details Appointments None recorded. Lab lipid panel, serum 2022 023 [facility], [address], [address], [place], [address], 3 07:08:03 CBC w/ diff 2022 023 [facility], [address], [address], [place], [address], 3 07:08:00 CMP, serum or plasma 2022 023 [facility], [address], [address], [place], [address], 3 07:08:02 HbA1c (hemoglobin A1c), blood 2022 023 [facility], [address], [address], [place], [address], 3 07:08:04 TSH + free T4, serum 2022 023 [facility], [address], [address], [place], [address], 3 07:08:01 rapid strep group A, throat 2021 [email or web address] Not available 15:36:35 influenza virus A + B + SARS-CoV-2 (COVID19) Ag panel, rapid IA, upper respiratory specimen 2021 [email or web address] Not available 15:36:35 Referral None recorded. Procedures None recorded. Surgeries None recorded. Imaging None recorded. Medication Orders fluoxetine 40 mg capsule 2022 023 [email or web address] [facility], [address] [place] [address], [address], 3 13:15:39 amoxicillin 875 mg tablet 2021 023 [facility], [address] [place] [address], [address], 3 08:30:49 ibuprofen 800 mg tablet 2021 022 [facility], [address] [place] [address], [address], 14:40:00 Patient TargetsNo targets recorded. Patient Instructions Encounter Date Encounter Id Patient Instructions Last Modified By Organization Details Last Modified Time 09/02/[id number] learning about healthy weight [email or web address] Not available 09/02/2022 09:03:15 eating healthy foods: care instructions [email or web address] Not available 09/02/2022 09:03:15 A healthy lifestyle: care instructions [email or web address] Not available 09/02/2022 09:03:15 Reason for Referral None Reported. Results Created Date Observation Date Name Description Value Unit Range Abnormal Flag Note LastModifiedBy Organization Detail LastModifiedTime 02/02/20 22 02/01/2022 influ agueda virus A + B + SARS- CoV-2 (COVI D19) Ag panel , rapid IA, upper respi rator y speci men FLU A negati ve Not Available [address], [address], 02/01/2022 14:22:42 02/02/20 22 02/01/2022 influ agueda virus A + B + SARS- CoV-2 (COVI D19) Ag panel , rapid IA, upper respi rator y speci men FLU B negati ve Not Available [address], [address], 02/01/2022 14:22:42 02/02/20 22 02/01/2022 influ agueda virus A + B + SARS- CoV-2 (COVI D19) Ag panel , rapid IA, upper respi rator y speci men SARS COV + SARS OV 2 negati ve Not Available [address], [address], 02/01/2022 14:22:42 02/02/20 22 02/01/2022 rapid strep group A, throa t Strep positi ve Not Available [address], [address], 02/01/2022 14:22:28 09/03/19 23 09/03/2022 CBC/D /PLT WBC 8.8 x10e3 /uL 3.4-10 .8 Not Available [facility] ([facility]) [address] [place], [address], 09/04/2022 07:08:00 09/03/1909/03/2022 CBC/D /PLT RBC 4.47 x10e6 /uL 3.77-5 .28 Not Available [facility] ([facility]) [address] [place], [address], 09/04/2022 07:08:00 09/03/19 23 09/03/2022 CBC/D /PLT hemoglobin 13.5 g/dL 11.1-1 5.9 Not Available [facility] ([facility]) [address] [place], [address], 09/04/2022 07:08:00 09/03/19 23 09/03/2022 CBC/D /PLT hematocrit 41.3 % 34.0-4 6.6 Not Available [facility] ([facility]) [address] [place], [address], 09/04/2022 07:08:00 09/03/19 23 09/03/2022 CBC/D /PLT MCV 92 fL 79-97 Not Available [facility] ([facility]) [address] [place], [address], 09/04/2022 07:08:00 09/03/19 23 09/03/2022 CBC/D /PLT MCH 30.2 pg 26.6-3 3.0 Not Available [facility] ([facility]) [address] [place], [address], 09/04/2022 07:08:00 09/03/19 23 09/03/2022 CBC/D /PLT MCHC 32.7 g/dL 31.5-3 5.7 Not Available [facility] ([facility]) [address] [place], [address], 09/04/2022 07:08:00 09/03/19 23 09/03/2022 CBC/D /PLT RDW 13.1 % 11.7-1 5.4 Not Available [facility] ([facility]) [address] [place], [address], 09/04/2022 07:08:00 09/03/19 23 09/03/2022 CBC/D /PLT platelets 263 x10e3 /uL 150-45 0 Not Available [facility] ([facility]) [address] [place], [address], 09/04/2022 07:08:00 09/03/19 23 09/03/2022 CBC/D /PLT neutrophils 59 % not estab. Not Available [facility] ([facility]) [address] [place], [address], 09/04/2022 07:08:00 09/03/19 23 09/03/2022 CBC/D /PLT lymphs 33 % not estab. Not Available [facility] ([facility]) [address] [facility] [place] [place], [address], 09/04/2022 07:08:00 09/03/19 23 09/03/2022 CBC/D /PLT monocytes 7 % not estab. Not Available [facility] ([facility]) [address] [facility] [place] [place], [address], 09/04/2022 07:08:00 09/03/19 23 09/03/2022 CBC/D /PLT eos 1 % not estab. Not Available [facility] ([facility]) [address] [place], [address], 09/04/2022 07:08:00 09/03/19 23 09/03/2022 CBC/D /PLT basos 0 % not estab. Not Available [facility] ([facility]) [address] [place], [address], 09/04/2022 07:08:00 09/03/19 23 09/03/2022 CBC/D /PLT immature cells AUDIT [employer]NER Not Available [facility] ([facility]) [address] [place], [address], 09/04/2022 07:08:00 09/03/19 23 09/03/2022 CBC/D /PLT neutrophils (absolute) 5.1 x10e3 /uL 1.4-7. 0 Not Available [facility] ([facility]) [address] [place], [address], 09/04/2022 07:08:00 09/03/19 23 09/03/2022 CBC/D /PLT lymphs (absolute) 2.9 x10e3 /uL 0.7-3. 1 Not Available [facility] ([facility]) [address] [place], [address], 09/04/2022 07:08:00 09/03/19 23 09/03/2022 CBC/D /PLT monocytes(ab solute) 0.6 x10e3 /uL 0.1-0. 9 Not Available [facility] ([facility]) [address] [facility], [place], [address], 09/04/2022 07:08:00 09/03/19 23 09/03/2022 CBC/D /PLT eos (absolute) 0.1 x10e3 /uL 0.0-0. 4 Not Available [facility] ([facility]) [address] [place], [address], 09/04/2022 07:08:00 09/03/19 23 09/03/2022 CBC/D /PLT baso (absolute) 0.0 x10e3 /uL 0.0-0. 2 Not Available [facility] ([facility]) [address] [facility], [place], [address], 09/04/2022 07:08:00 09/03/19 23 09/03/2022 CBC/D /PLT immature granulocytes 0 % not estab. Not Available [facility] ([facility]) [address] [place], [address], 09/04/2022 07:08:00 09/03/19 23 09/03/2022 CBC/D /PLT immature grans (abs) 0.0 x10e3 /uL 0.0-0. 1 Not Available [facility] ([facility]) [address] [facility], [place], [address], 09/04/2022 07:08:00 09/03/19 23 09/03/2022 CBC/D /PLT NRBC [employer]NER Not Available [facility] ([facility]) [address] [facility], [place], [address], 09/04/2022 07:08:00 09/03/19 23 09/03/2022 CBC/D /PLT hematology comments: AUD[employer]NER Not Available [facility] ([facility]) [address] [facility] [place] [place], [address], 09/04/2022 07:08:00 09/03/19 23 09/04/2022 TSH+F REE T4 TSH 1.720 uIU/m L 0.450- 4.500 Not Available [facility] ([facility]) [address] [facility] [place] [place], [address], 09/04/2022 07:08:01 09/03/19 23 09/04/2022 TSH+F REE T4 T4,free(dire ct) 0.77 NG/dL 0.82-1 .77 below low normal Not Available [facility] ([facility]) [address] [facility] [place] [place], [address], 09/04/2022 07:08:01 09/03/19 23 09/04/2022 COMP. METAB OLIC PANEL (14) glucose 127 mg/dL 70-99 above high normal Not Available [facility] ([facility]) [address] [facility] [place] [place], [address], 09/04/2022 07:08:02 09/03/19 23 09/04/2022 COMP. METAB OLIC PANEL (14) BUN 12 mg/dL 6-24 Not Available [facility] ([facility]) [address] [facility] [place] [place], [address], 09/04/2022 07:08:02 09/03/19 23 09/04/2022 COMP. METAB OLIC PANEL (14) creatinine 0.77 mg/dL 0.57-1 .00 Not Available [facility] ([facility]) [address] [facility] [place], [address], 09/04/2022 07:08:02 09/03/19 23 09/04/2022 COMP. METAB OLIC PANEL (14) eGFR 99 mL/mi n/1.7 3 >59 Not Available [facility] ([facility]) [address], [place], [address], 09/04/2022 07:08:02 09/03/19 23 09/04/2022 COMP. METAB OLIC PANEL (14) BUN/creatini ne ratio 16 9-23 Not Available [facility] ([facility]) [address], [place], [address], 09/04/2022 07:08:02 09/03/19 23 09/04/2022 COMP. METAB OLIC PANEL (14) sodium 138 mmol/ L 134-14 4 Not Available [facility] ([facility]) [address] [facility], [place], [address], 09/04/2022 07:08:02 09/03/19 23 09/04/2022 COMP. METAB OLIC PANEL (14) potassium 4.0 mmol/ L 3.5-5. 2 Not Available [facility] ([facility]) [address] [facility], [place], [address], 09/04/2022 07:08:02 09/03/19 23 09/04/2022 COMP. METAB OLIC PANEL (14) chloride 102 mmol/ L 96-106 Not Available [facility] ([facility]) [address] [facility], [place], [address], 09/04/2022 07:08:02 09/03/19 23 09/04/2022 COMP. METAB OLIC PANEL (14) carbon dioxide, total 25 mmol/ L 20-29 Not Available [facility] ([facility]) [address] [facility], [place], [address], 09/04/2022 07:08:02 09/03/19 23 09/04/2022 COMP. METAB OLIC PANEL (14) calcium 9.3 mg/dL 8.7-10 .2 Not Available [facility] ([facility]) [address] [facility], [place], [address], 09/04/2022 07:08:02 09/03/19 23 09/04/2022 COMP. METAB OLIC PANEL (14) protein, total 6.5 g/dL 6.0-8. 5 Not Available [facility] ([facility]) [address], [place], [address], 09/04/2022 07:08:02 09/03/19 23 09/04/2022 COMP. METAB OLIC PANEL (14) albumin 4.1 g/dL 3.8-4. 8 Not Available [facility] ([facility]) [address], [place], [address], 09/04/2022 07:08:02 09/03/19 23 09/04/2022 COMP. METAB OLIC PANEL (14) globulin, total 2.4 g/dL 1.5-4. 5 Not Available [facility] ([facility]) [address] [facility], [place], [address], 09/04/2022 07:08:02 09/03/19 23 09/04/2022 COMP. METAB OLIC PANEL (14) A/G ratio 1.7 1.2-2. 2 Not Available [facility] ([facility]) [address] [facility], [place], [address], 09/04/2022 07:08:02 09/03/19 23 09/04/2022 COMP. METAB OLIC PANEL (14) bilirubin, total 0.2 mg/dL 0.0-1. 2 Not Available [facility] ([facility]) [address] [facility], [place], [address], 09/04/2022 07:08:02 09/03/19 23 09/04/2022 COMP. METAB OLIC PANEL (14) alkaline phosphatase 79 IU/L 44-121 Not Available [facility] ([facility]) [address] [facility], [place], [address], 09/04/2022 07:08:02 09/03/19 23 09/04/2022 COMP. METAB OLIC PANEL (14) AST (SGOT) 14 IU/L 0-40 Not Available [facility] ([facility]) [address] [facility] [place], [address], 09/04/2022 07:08:02 09/03/19 23 09/04/2022 COMP. METAB OLIC PANEL (14) ALT (SGPT) 17 IU/L 0-32 Not Available [facility] ([facility]) [address] [facility] [place], [address], 09/04/2022 07:08:02 09/03/19 23 09/04/2022 LIPID PANEL cholesterol, total 186 mg/dL 100-19 9 Not Available [facility] ([facility]) [address] [facility] [place], [address], 09/04/2022 07:08:03 09/03/19 23 09/04/2022 LIPID PANEL triglyceride s 165 mg/dL 0-149 above high normal Not Available [facility] ([facility]) [address] [facility] [place], [address], 09/04/2022 07:08:03 09/03/19 23 09/04/2022 LIPID PANEL HDL cholesterol 45 mg/dL >39 Not Available [facility] ([facility]) [address] [facility] [place], [address], 09/04/2022 07:08:03 09/03/19 23 09/04/2022 LIPID PANEL VLDL cholesterol josee 29 mg/dL 5-40 Not Available [facility] ([facility]) [address] [place], [address], 09/04/2022 07:08:03 09/03/19 23 09/04/2022 LIPID PANEL LDL chol calc ([facility]) 112 mg/dL 0-99 above high normal Not Available [facility] ([facility]) [address] [place], [address], 09/04/2022 07:08:03 09/03/19 23 09/04/2022 LIPID PANEL comment: AUDIT PARTNER Not Available [facility] ([facility]) [address] [facility], [place], [address], 09/04/2022 07:08:03 09/03/19 23 09/03/2022 HEMOG LOBIN A1C hemoglobin A1C 5.9 % 4.8-5. 6 above high normal Predi abete s: 5.7 - 6.4 Diabe christy: >6.4 Glyce chuy contr ol for adult s with diabe christy: <7.0 Not Available [facility] ([facility]) [address] [facility], [place], [address], 09/04/2022 07:08:04 09/20/19 24 09/20/2023 imagi ng/di agnos tic resul t No observ ation record ed. [facility] [address], [place], [address], 09/20/2023 05:47:42 Result Notes None recorded. Problems Name Problem SNOMED Code Status Onset Date Resolution Date Notes Provider Name and Address Organization Details Recorded Time Mixed anxiety and depressive disorder 125331086 Active 2021 Leta navarro [place] - [facility] [place] 2 14:21:31 Hyperlipidemia 79289988 Active 2021 Leta navarro [place] - [facility] & [place] 2 14:21:37 Problem Notes None recorded. Medical Equipment None Reported. Allergies No known drug allergies Medications Name Sig Start Date Stop Date Status Note LastModified by Organization Details LastModified Time fluoxetine 40 mg capsule TAKE 1 CAPSULE BY MOUTH ONCE DAILY active Not Available Not Available No t Available atorvastati n 10 mg tablet TAKE 1 TABLET BY MOUTH ONCE DAILY active Not Available Not Available No t Available ibuprofen 800 mg tablet Take 1 tablet 3 times a day by oral route for 4 days. active Not Available Not Available No t Available sulfamethox azole 800 mg-trimetho prim 160 mg tablet TAKE 1 TABLET BY MOUTH TWICE DAILY FOR 10 DAYS 09/02 completed Not Available Not Available Not Available terbinafine HCl 250 mg tablet TAKE 1 TABLET BY MOUTH ONCE DAILY FOR 7 DAYS DIRECTED EVERY OTHER MONTH active Not Available Not Available No t Available amoxicillin 875 mg tablet Take 1 tablet every 12 hours by oral route. 09/02 completed Not Available Not Available Not Available benzonatate 100 mg capsule TAKE 1 CAPSULE BY MOUTH THREE TIMES DAILY NEEDED FOR COUGH 09/02 completed Not Available Not Available Not Available cephalexin 500 mg capsule TAKE 1 CAPSULE BY MOUTH EVERY 6 HOURS FOR 10 DAYS 09/02 completed Not Available Not Available Not Available oseltamivir 75 mg capsule 09/02 completed Not Available Not Available Not Available ibuprofen 400 mg tablet 09/02 completed Not Available Not Available Not Available mupirocin 2 % topical ointment APPLY OINTMENT TOPICALLY TO AFFECTED AREA THREE TIMES DAILY FOR 7 DAYS 09/02 completed Not Available Not Available Not Available ketoconazol e 2 % topical cream APPLY CREAM TOPICALLY TO FOOT TWICE DAILY active Not Available Not Available No t Available Vitals Date Recorded Body height Body mass index (BMI) Body weight Body temperature Oxygen saturation Oxygen saturation in Arterial blood by Pulse oximetry Heart rate Respiratory rate Systolic And Diastolic Provider Name and Address Organization Details Last Updated DateTime 3 157.48 cm 37.2 kg/m2 01418.6 9 g 97.3 [degF] 96 % 96 % 60 /min 16 /min 127/82 mm[Hg] [facility] 08[facility]23 Date Recorded Body height Body mass index (BMI) Body weight Body temperature Oxygen saturation Oxygen saturation in Arterial blood by Pulse oximetry Heart rate Respiratory rate Systolic And Diastolic Provider Name and Address Organization Details Last Updated DateTime 2 157.48 cm 35.6 kg/m2 50358.0 8 g 97.7 [degF] 97 % 97 % 63 /min 18 /min 123/83 mm[Hg] Letamireya Mendesjhonny [place] - [facility] & [place] 2 14:20:45 Social History Question Answer Notes LastModified by Organizat ion Details LastModified Time Tobacco Smoking Status Never Smoker Leta Zuñiga null, [place] - [facility] - [place] & [place] 02/01/2022 14:21:52 If You Are , What Was Your Level Of Alcohol Consumption Prior To ? None Information not available 02/01/2022 What Is Your Level Of Caffeine Consumption? Occasional Information not available 02/01/2022 Has Tobacco Cessation Counseling Been Provided? No Information not available 02/01/2022 Sex: Female Functional Status Question Answer Note LastModified by Organizat ion Details LastModified Time Do you use any illicit or recreational drugs? No Information not available 02/01/2022 Do you or have you ever used any other forms of tobacco or nicotine? No Information not available 02/01/2022 What is your level of alcohol consumption? None Information not available 02/01/2022 Mental Status None recorded. Family History Relationship Description Onset Age of this Age Resolved Age Notes LastModified by Organization Details LastModified Time Father No current problems or disability [email or web address] Not available 02/01 14:21:42 Father Hypertensive disorder pt. added direct ly (05/03) [email or web address] Not available 05/03/2024 18:24:56 Mother No current problems or disability tpardini Not available 02/01 14:21:42 Mother Hypertensive disorder pt. added direct ly (05/03) [email or web address] Not available 05/03/2024 18:24:56 Medical History No medical history recorded. Gynecological HistoryNo gynecological history recorded. Obstetrics History GPAL:G 0 P 0 0 0 0 Past Encounters Encounter ID Performer Location Encounter Start Date Encounter Closed Date Diagnosis/Indication Diagnosis SNOMED-CT Code Diagnosis ICD10 Code Diagnosis IMO Codes Diagnosis Note [id number] Kobe Long MD [email or web address] [address] [address] 02/01/2022 14:01:19 02/09/2022 16:16:05 Pain in throat 032101374 R07.0 positive for strep Congestion of nasal sinus 36909788 R09.81 Acute pharyngitis 196460 003 J02.9 gargle with salt water, changer to thrush. take medication s still all gone [id number] Margaret Chambers APRN [facility] [address] [place] [address] 09/02/2022 08:25:08 09/02/2022 09:11:17 Mixed anxiety and depressive disorder 151661025 F41.8 Patient identified triggers for anxiety and impact of anxious thinking on functionin g. Discussed strategies to regulate symptoms and need for compliance with treatment. Body mass index 30+ - obesity 037785718 Z68.37 blood drawn in the left AC by Margaret Chambers CMA, patient tolerated well. encouraged healthy lifestyle changes,in crease water intakedecr ease portion sizesdecre ase carbs, sugars, greasy and fatty foods. Mixed hyperlipidemia 267 109786 E78.2 Patient advised to exercise, eat a prudent diet and lose weight as appropriat e. Health Concerns Section Related Observation LastModified by Organization Detai ls LastModified Time None Recorded Concern Status LastModified by Organization Details LastModified Time None Recorded Advance Directives Directive None Recorded Payers Insurance Date Sequence Insurance Name Policy Number Policy Forbes Covered Member ID Forbes Member ID Guarantor Name 05/03/2024 1 [place] ANN CAVA[place] OF [place] - [employer] [id number] Araceli David [id number] Araceli David Notes Date Note Type Note Provider Name and Address Organization Details Recorded Time 02/01/2022 text/html Patient presents with flu-like symptoms including a sore throat. She has been sick for 3 days. Kobe Long MD [address] [facility], [place], [address], [facility] - [place] & [place] 02/02/2022 08:09:44 09/02/2022 text/html 42 y/o female that presents ot te clinic for concerned about weight gain. She has been monitoring diet and decreasing Mt Dew Intake but she is still having strong sugar cravings and is giving into cravings. She would like to start on a medication to aid in symptoms. She is due to recheck of bloodwork today. She is seeing [facility] dermatology for fungal rash and is taking medications as prescribed within chart. She denies any acute complaints, aches, or illnesses. She is taking fluoxetine as prescribed, denies any s/e and no thoughts of harming self or others, no suicidal ideation. Margaret Chambers APRN [address] [facility], [place], [address], [facility] & [place] 09/02/2022 13:15:42 OBGyn Episode No OBEpisode recorded.
--- OUTSIDE RECORDS SUMMARY | 2025-02-04 13:50 | XMS_ITS | Clinical Summary ---
Author Organization [employer] ([place], [place], [place], [place], [place]) Address [address] [place] [address] Care Team Providers Care Precipitator Operator Name Role Phone Unavailable Primary Care Provider Unavailabl e Allergies No known active allergies Encounters Date Type Department Care Team Description 01/28/2025 9:51 AM EST - 01/28/2025 11:59 PM EST Hospital Encounter [facility] [place] [facility] [address] [place] [address] Anastasia Phelps MD Other migraine, intractable, without status migrainosus Discharge Disposition: Home or Self Care 01/28/2025 Travel from Last 3 Months Social History Tobacco Use Types Packs/Day Years Used Date Smoking Tobacco: Never Assessed Comments Unknown Sex and Gender Information Value Date Recorded Sex Assigned at Female 09/21/2021 8:49 PM CDT Legal Sex Female 8:49 PM CDT Gender Identity Female 09/21/2021 8:49 PM CDT Sexual Orientation Not on file Plan of Treatment Health Maintenance Due Date Last Done Comments Depression Screening (12+) 1992 Tobacco Cessation Counseling and Screening (12+) 1992 HIV Screening 1995 Hepatitis C Screening 1998 DTAP/TDAP/TD VACCINES (1 - Tdap) 1999 Pap Smear 2001 Breast Cancer Screening 2020 COVID-19 VACCINE (2 - 2024-2 6 season) 2024 01/18/2021 Influenza Vaccine (#1) 2024 Pneumococcal Vaccine: 0-49 Years Aged Out No longer eligible based on patient's age to complete this topic Procedures Procedure Name Priority Date/Time Associated Diagnosis [...]
--- OUTSIDE RECORDS SUMMARY | 2025-02-04 13:50 | XMS_ITS | Data Portability ---
Author Organization [facility] Yosef Manning c [facility] Address [address] [place] [address] Assessment No assessment recorded. Plan of Treatment Reminders Order Date Submit Date Provider Last Modified By Organization Details Last Modified Time Details Appointments None recorded. Lab surgical pathology study [address] [facility], [address] [place] [address], [id number], 10:02:46 Referral None recorded. Procedures None recorded. Surgeries None recorded. Imaging None recorded. Medication Orders None recorded. Patient TargetsNo targets recorded. Patient InstructionsNo instructions recorded. Reason for Referral None Reported. Results Created Date Observation Date Name Description Value Unit Range Abnormal Flag Note LastModifiedBy Organization Detail LastModifiedTime 06/25/1906/24/2024 SURGI RADHA surgical SEE BELOW Gillespie topat holog y Repor t NAME: MASHA SCRUGGS RLY PATH: [id number] PROCE DURE DATE: 06/24 SIGNO UT DATE: 06/25 Copy to: Diagn osis: Left media l butto ck- INTRA DERMA L MELAN OCYTI C NEVUS SOURC E OF SPECI MEN: SKIN, L MEDIA L BUTTO CK CLINI RADHA INFOR MATIO N: R/O: IRRIT ATED NEVUS . Gross Descr iptio n: The speci men consi sted of a arriaza fragm ent which was bisec cj and measu red 6 x 6 x 3 mm. All submi tted in one casse tte. Micro scopi c Descr iptio n: Nests of derma l melan ocyte s exhib it symme try, circu mscri ption and matur ation with desce nt. MD Alisa PATIÑO d Out Date: 06/25 10:02 1 Not Available [facility] [address], [place], [phone], 06/25/2024 10:02:45 Result Notes None recorded. Procedures Surgical History Date Name Laterality Status Provider Name and Address Organization Details Recorded Time Shave Removal completed Marcia Dye [facility] 06/24/2024 09:10:05 Imaging Results None recorded. Procedure Notes None recorded. Medical Equipment None Reported. Allergies No known drug allergies Medications Name Sig Start Date Stop Date Status Note LastModified by Organization Details LastModified Time Prozac active Not Available Not Availa ble Not Available Vitals None Recorded Social History Question Answer Notes LastModified by Organizat ion Details LastModified Time What Was The Date Of Your Most Recent Tobacco Screening? 06/24/2024 [email or web address] Information not available 06/24/2024 Sex: Unknown Functional Status None recorded. Mental Status None recorded. Family History Relationship Description Onset Age of this Age Resolved Age Notes LastModified by Organization Details LastModified Time Father No current problems or disability [email or web address] Not available 06/24 08:52:55 Mother No current problems or disability [email or web address] Not available 06/24 08:52:55 Medical History No medical history recorded. Gynecological HistoryNo gynecological history recorded. Obstetrics History GPAL:G 0 P 0 0 0 0 Past Encounters Encounter ID Performer Location Encounter Start Date Encounter Closed Date Diagnosis/Indication Diagnosis SNOMED-CT Code Diagnosis ICD10 Code Diagnosis IMO Codes Diagnosis Note [id number] KEN WORTHINGTON PA-C [place] [address] [place] [address] 06/24/2024 08:42:17 06/24/2024 12:19:27 Neoplasm of uncertain behavior of skin 06838336 D48.5 Had the lesion for many yearsNotes it becomes irritated when she gets hot and sweatyHas had Ln2 in the pastDenies the lesion ever draining. Rec doing a shave removal today for relief. We do not think Ln2 will resolve the issue.Advi sed to keep the area clean and dry while healing. Health Concerns Section Related Observation LastModified by Organization Detai ls LastModified Time None Recorded Concern Status LastModified by Organization Details LastModified Time None Recorded Advance Directives Directive None Recorded Payers Insurance Date Sequence Insurance Name Policy Number Policy Forbes Covered Member ID Forbes Member ID Guarantor Name 06/26/2024 1 [employer] [employer] [id number] Araceli Janes Frankie [id number] Araceli Scruggs Notes Date Note Type Note Provider Name and Address Organization Details Recorded Time 06/24/2024 text/html Specific spot to check Location: buttocksGeneral duration: ~20 yearsPredominant symptom:painful sensitive, burningPrior treatment(s):cryoHisto ry of evolution:stable KEN WORTHINGTON PA-C [address] [place], [address], [facility] 06/24/2024 10:24:18 OBGyn Episode No OBEpisode recorded.
== END 2025-02-04 23:59 | disposition home or self-care (01) ==
LOC: RAD 13:44
PROVIDERS: PCP Nurse Practitioner Family; Visit Provider Nurse Practitioner Family
DX: Z12.31 Encounter for screening mammogram for malignant neoplasm of breast (principal); R92.323 Mammographic fibroglandular density, bilateral breasts
CPT/HCPCS: 77063; 77067